=== PATIENT | male | born 1980 | race Caucasian/White ===

== ENCOUNTER 2019-12-03 03:33 | Observation (INO) | payer BC, SELFPAY ==
[2019-12-03] VITALS (10 sets, daily range): BP systolic 136–171; BP diastolic 85–106; PULSE 84–128; RESP 13–20; TEMP 36.3–36.8; O2SAT 97–100; BMI 23.9
--- NOTE | ~2019-12-03 | US_ITS ---
EXAMINATION: US right upper quadrant DATE: 12/04/2019 09:15 INDICATION: Elevated liver function tests TECHNIQUE: Multiple grayscale and Doppler ultrasound images of the abdomen were obtained. COMPARISON: None FINDINGS: Pancreas is normal. Visualized proximal to mid inferior vena cava is normal. Liver has normal echogen icity and contour, with a smooth surface. No liver lesion identified. No intrahepatic biliary duct di lation suspected. Portal venous flow was seen in the hepatopetal, normal direction and has normal Dop pler waveform. The gallbladder is normal in appearance. There is no cholelithiasis. The common bile duct measures 5 mm, which is normal. Sonographic Cabrera sign was reported as negative by the sonograp her.Visualized portion of the right kidney demonstrates normal contour and echogenicity with no hydro nephrosis. IMPRESSION: 1. Normal right upper quadrant ultrasound. Reviewed, dictated and finalized at location A.
--- NOTE | 2019-12-03 03:51 | ED.ALCOHOL ---
HPI - Alcohol General Chief Complaint: Alcohol Stated Complaint: coming off of a harden Time Seen by Provider: 12/03/19 03:43 History of Present Illness HPI narrative: 39 yo male with h/o alcohol abuse presents for alcohol withdrawal. He reports that he has been on a 3 week harden. Last drink was yesterday. He now has a tremor, nausea, chest pain. He has no other medical problems and takes no medications. Related Data Home Medications Medication Instructions Recorded Confirmed No Home Medications 12/03/19 12/03/19 Allergies Allergy/AdvReac Type Severity Reaction Status Date / Time No Known Allergies Allergy Verified 12/03/19 03:48 Review of Systems Review of Systems: All systems reviewed & are unremarkable except as noted in HPI and below Constitutional: Constitutional: Denies fever(s) Eyes: Eyes: Reports no additional eye complaints ENT: Reports system reviewed and no additional complaints, except as documented Cardiovascular: Cardiovascular: Reports chest pain Respiratory: Respiratory: Reports no additional respiratory complaints Gastrointestinal: Gastrointestinal: Reports nausea and Reports vomiting Neurologic: Denies confusion [facility] Past Medical History Medical History (Updated 12/03/19 @ 05:41 by Reuben Luis MD) Alcohol abuse Alcohol withdrawal Social History Social History (Updated 12/03/19 @ 03:57 by Reuben Luis MD) Alcohol intake: current Substance use: never Exam Const: General: alert Orientation/consciousness: patient oriented x3 HENMT: Mouth: Yes dry mucous membranes Eyes: Pupils: Equal, round and reactive pupils present Resp: Effort & Inspection: normal respiratory effort Auscultation: clear to auscultation bilaterally GI: GI Palp: Yes Soft to palpation and No Tenderness to palpation present (GI) Skin: General skin exam: normal color Neuro: General: patient oriented x3 and moves all extremities Motor exam (neuro): Tremors during motor activity present Extrem: General: normal to inspection Course Vital Signs Vital signs: Vital Signs Temperature 36.3 C L 12/03/19 03:38 Pulse Rate 128 H 12/03/19 03:38 Respiratory Rate 15 12/03/19 03:38 Blood Pressure 171/106 H 12/03/19 03:38 Pulse Oximetry 98 12/03/19 03:38 Temperature 36.7 C 12/03/19 05:38 Pulse Rate 98 12/03/19 05:38 Respiratory Rate 13 12/03/19 05:38 Blood Pressure 136/95 H 12/03/19 05:38 Pulse Oximetry 97 12/03/19 05:38 MDM - Alcohol MDM Narrative Medical decision making narrative: Alcohol withdrawal, dehydration Differential Diagnosis Differential diagnosis: Likely hypomagnesemia, alcohol ketoacidosis and alcohol withdrawal syndrome Medical Records Attestation: I reviewed the patient's medical records. Lab Data Attestation: I reviewed the patient's lab results. Result diagrams: 12/03/19 03:55 12/03/19 03:55 Labs: Lab Results 12/03/19 12/03/19 12/03/19 Range/Units 03:55 03:55 03:55 WBC 5.0 (4.5-10.0) K/mm3 RBC 4.89 (4.6-6.20) M/mm3 Hgb 15.1 (14.0-18.0) g/dL Hct 43.5 (42.0-52.0) % MCV 89.0 (80-100) fl MCH 30.9 (26-34) pg MCHC 34.7 (32-36) g/dl RDW 13.2 (11.5-14.5) % Plt Count 145 L (150-375) k/mm3 MPV 10.3 (7.4-10.4) fl Immature Gran % (Auto) 0.2 (0-0.5) % Neut % (Auto) 47.4 (45.5-73.1) % Lymph % (Auto) 39.8 (18.3-44.2) % [place] % (Auto) 11.4 H (2.6-8.5) % Eos % (Auto) 0.0 (0-4.4) % Baso % (Auto) 1.2 (0.2-1.2) % Lymph # (Auto) 1.99 (0.9-3.2) K/mm3 [place] # (Auto) 0.6 (0.1-0.6) K/mm3 Eos # (Auto) 0.0 (0-0.3) K/mm3 Baso # (Auto) 0.1 (0.0-0.1) K/mm3 Abs Immat Gran (auto) 0.01 (0.00-0.031) K/mm3 Absolute Neuts (auto) 2.4 (1.3-6.7) K/mm3 Absolute Nucleated RBC 0.0 (0.0-0.012) K/mm3 Nucleated RBC % 0.0 (0.0-0.2) % % Immature Plt Fraction 5.0 (0.9-11.2) % Sodium 138 (137-145) mmol/L Pot
[2019-12-03] MEDS: SODIUM CHLORIDE 0.9% IV 2,000 ML 999 ML IV CONT (03:57)
[2019-12-03] MEDS: THIAMINE HCL 200 MG/2 ML VIAL 100 MG IV PUSH (03:58)
[2019-12-03 04:04] LABS: Basophils Absolute Auto 0.1 K/mm3 (0.0-0.1); Basophils Percent Auto 1.2 % (0.2-1.2); Hematocrit 43.5 % (42.0-52.0); Hemoglobin 15.1 g/dL (14.0-18.0); Immature Granulocyte Absolute 0.01 K/mm3 (0.00-0.031); Immature Granulocyte Percent A 0.2 % (0-0.5); Lymphocytes Absolute Auto 1.99 K/mm3 (0.9-3.2); Lymphocytes Percent Auto 39.8 % (18.3-44.2); Mean Corpuscular HGB Conc 34.7 g/dl (32-36); Mean Corpuscular Hemoglobin 30.9 pg (26-34); Mean Platelet Volume 10.3 fl (7.4-10.4); Monocytes Absolute Auto 0.6 K/mm3 (0.1-0.6); Monocytes Percent Auto 11.4 % (2.6-8.5); Neutrophils Absolute Auto 2.4 K/mm3 (1.3-6.7); Neutrophils Percent Auto 47.4 % (45.5-73.1); Platelet Count Result 145 k/mm3 (150-375); Red Blood Count 4.89 M/mm3 (4.6-6.20); Red Cell Distribution Width 13.2 % (11.5-14.5)
[2019-12-03] MEDS: LORAZEPAM INJ 2 MG/ML VIAL IV PUSH ×3 (04:05→10:16)
--- NOTE | 2019-12-03 04:13 | ECG_ITS ---
Measurements Intervals [place] Rate: 121 P: 99 [place]: 172 QRS: 59 QRSD: 98 T: 56 QT: 321 QTc: 457 Interpretive Statements SINUS TACHYCARDIA BASELINE ARTIFACT- I, III, AVL, V1 ABNORMAL ECG Electronically Signed On 12-03-2019 7:10:59 CDT by Jamal Potter D.O.
[2019-12-03 04:22] LABS: Ethanol 151 mg/dL (<10)
[2019-12-03 04:24] LABS: Alanine Aminotransferase 272 U/L (4-50); Albumin Level 4.8 g/dL (3.5-5.1); Alkaline Phosphatase 85 U/L (38-126); Aspartate Amino Transferase 180 U/L (17-59); Bilirubin,Total 0.9 mg/dL (0.2-1.3); Blood Urea Nitrogen 15 mg/dL (9-20); Calcium 9.1 mg/dL (8.4-10.2); Carbon Dioxide 24 mmol/L (22-30); Chloride 98 mmol/L (98-107); Estimated CRCL calculation 133 ml/min; Estimated Glomerular Filt Rate > 60; Glucose 122 mg/dL (75-110); Potassium 3.3 mmol/L (3.4-5.0); Sodium 138 mmol/L (137-145)
[2019-12-03 05:44] LABS: Add Urine Microscopic? YES; Amorphous Sediment Urine Few; Appearance Urine Cloudy (Clear); Bacteria Urine Trace /hpf; Bilirubin Urine Negative (Negative); Blood Urine Negative (Negative); Color Urine Yellow (Yellow); Glucose Urine UA Negative (Negative); Ketones Urine Negative (Negative); Leukocyte Esterase Ur Negative LEU/UL (Negative); Mucus Urine Rare /lpf; Nitrate Urine Negative (Negative); Protein Urine 2+ mg/dL (Negative); RBC Urine 0-2 /hpf (0-2); Specific Grav Ur 1.024 (1.001-1.035); Squamous Epithelial Cell Urine Rare /hpf (Few); WBC Urine 0-3 /hpf
[2019-12-03] MEDS: LACTATED RINGERS 1,000 ML 125 ML IV CONT (05:51)
[2019-12-03] MEDS: CHLORDIAZEPOXIDE 25 MG CAPSULE 100 MG PO ×4 (05:51→23:48)
[2019-12-03 05:57] LABS: Amphetamine Screen Urine Negative (Negative); Barbiturate Screen Urine Negative (Negative); Benzodiazepines Screen Urine Negative (Negative); Cannabinoid Screen Urine Negative (Negative); Cocaine Screen Urine Negative (Negative); Methadone Screen Urine Negative (Negative); Opiate Screen Urine Negative (Negative); Phencyclidine Screen Urine Negative (Negative)
--- NOTE | 2019-12-03 06:21 | ADMGEN ---
This patient, Isaiah Hicks, was admitted to IMU Room 205-01 from ER 12/03/19 0545. Patient/family oriented to hospital policies and general routines including ID bracelet, bed and alarms, visiting hours, pain management, procedures, bathroom and other care routines, personal items, smoking policy, room service/diet, and visiting hours. Valuables list has been completed. Information on how to activate the Rapid Response Team has been discussed. Patient/Family are encouraged to report perceived risks to care and to ask questions if they do not understand what they are told or what they should do.
--- NOTE | 2019-12-03 09:09 | PM.IMHP ---
H&P: HPI History of Present Illness Chief complaint: Alcohol Withdrawal Narrative: Date of visit 12/02 829. Isaiah Hicks is a 39 year old male with history of chronic alcohol abuse who presented to the emergency room agitated tremulous concerned about his health. He has had some substernal heartburn relieved with an acid. He had an episode of emesis before admission also. No seizures no syncope. He had been drinking wine unknown quantity least a bottle a day with occasional hard liquor and beer and had abruptly stopped about 3-4 days ago. He has been drinking heavily steadily worse over the last 5 years and states that has stopped 1 other time for about a month with minor withdrawal and no seizures or DTs. In the ER it was felt he would best be admitted for observation. Review of Systems Review of Systems: Narrative: Constitutional no fever no chills but he states that appetite has been poor nose lost about 20 lb over last 6 months Eye no double vision scotoma Mouth no pharyngitis laryngitis Pulmonary no shortness of breath wheezing or cough no history of asthma GI had the emesis substernal burning relieved with antacids as but no melena hematochezia or diarrhea no dysuria hematuria Muscle skeletal no particular joint discomfort Integument no skin breakdown rashes Neuro as above no seizures or syncope Psych slightly depressed PMFSH Past Medical History Medical History (Updated 12/03/19 @ 09:24 by Jose G Enamorado MD) Alcohol abuse Alcohol withdrawal Family History Family History (Updated 12/03/19 @ 09:29 by Jose G Enamorado MD) Father Healthy male adult Mother Healthy female adult Other Unknown family medical history Social History Social History (Updated 12/03/19 @ 03:57 by Reuben Luis MD) Smoking packs per day: 1 Smoking cigarettes per day: 20.0 Years smoked: 10 Smoking pack-years: 10.00 Smoking status: Former smoker Tobacco type: cigarettes Second hand tobacco smoke exposure: Yes Smoking end date: 08/14/19 Alcohol intake: current Drinks per week: 7 Substance use: never Gender identity (if verbalized by the patient): Male Spiritual care concerns: No Meds Home Medications and Allergies Home Medications Medication Instructions Recorded Confirmed Type No Home Medications 12/03/19 12/03/19 History Allergies Allergy/AdvReac Type Severity Reaction Status Date / Time No Known Allergies Allergy Verified 12/03/19 03:48 Vital Signs Vital Signs - 24 hr 12/03/19 03:38 12/03/19 04:33 12/03/19 05:38 Temperature 36.3 C L 36.7 C Pulse Rate 128 H 98 98 Respiratory Rate 15 17 13 Blood Pressure 171/106 H 156/99 H 136/95 H Pulse Oximetry 98 98 97 12/03/19 05:58 12/03/19 06:00 12/03/19 08:00 Temperature 36.8 C 36.8 C Pulse Rate 100 103 H 93 Respiratory Rate 20 18 Blood Pressure 149/89 H 153/91 H Pulse Oximetry 98 100 Exam Narrative: Exam Narrative: Blood pressure 152/90 pulse is 92 respirations 18 per minute afebrile Pupils equal reactive light sclera anicteric Mouth normal Lungs clear Neck no adenopathy thyromegaly carotid bruits CV no murmurs slightly tacky Abdomen soft nontender no masses Extremities without edema good distal pulses Neuro alert cooperative cranial nerves 2-12 are intact no focal deficits and oriented x3 Psych affect flat appears depressed H&P: Results Labs Labs: Short CBC 12/03/19 Range/Units 03:55 WBC 5.0 (4.5-10.0) K/mm3 Hgb 15.1 (14.0-18.0) g/dL Hct 43.5 (42.0-52.0) % Plt Count 145 L (150-375) k/mm3 [facility] 12/03/19 03:55 Sodium 138 Potassium 3.3 L Chloride 98 Carbon Dioxide 24 BUN 15 Creatinine 0.80 Glucose 122 H Calcium 9.1 Liver Function 12/03/19 Range/Units 03:55 Total Bilirubin 0.9 (0.2-1.3) mg/dL AST 180 H (17-59) U/L ALT 272 H (4-50) U/L Alkaline Phosphatase 85 (38-126) U/L Albumin 4.8 (3.5-5.1) g/dL Urine 12/03/19 Range/
[2019-12-03] MEDS: THIAMINE HCL 100 MG TABLET PO (10:05)
[2019-12-03] MEDS: POTASSIUM CHLORIDE 20 MEQ TABLET 40 MEQ PO ×2 (10:05→14:11)
[2019-12-03 12:25] LABS: Albumin Level 3.7 g/dL (3.5-5.1); Blood Urea Nitrogen 11 mg/dL (9-20); Calcium 8.4 mg/dL (8.4-10.2); Carbon Dioxide 28 mmol/L (22-30); Chloride 99 mmol/L (98-107); Estimated CRCL calculation 151 ml/min; Estimated Glomerular Filt Rate > 60; Glucose 99 mg/dL (75-110); Magnesium 1.7 mg/dL (1.6-2.3); Phosphorus 2.8 mg/dL (2.5-4.5); Potassium 3.3 mmol/L (3.4-5.0); Sodium 133 mmol/L (137-145)
[2019-12-03 13:24] LABS: Hepatitis B Surface Antigen Negative (Negative)
[2019-12-03 13:30] LABS: HAV RESULT Negative (Negative); Hepatitis B Core IgM Result Negative (Negative)
[2019-12-03 13:32] LABS: Folic Acid 3.8 ng/mL (2.76->20)
[2019-12-03 13:41] LABS: Hepatitis C Virus Antibody Negative (Negative)
[2019-12-03] MEDS: SODIUM CHLORIDE 0.9% IV 1,000 ML 100 ML IV CONT (14:08)
--- NOTE | 2019-12-03 17:04 | PC.NURSE ---
Transfer received from IMU 205 to room 255.
--- NOTE | 2019-12-03 17:16 | PC.NURSE ---
This patient, Isaiah Hicks, was transferred to [facility] on 12/03/19 at 1652. Personal belongings sent with patient. Belongings list checked and signed with receiving. Report given to JANETH Olivo. Appropriate documentation sent with patient.
[2019-12-04] VITALS: BP 112/60; PULSE 72; RESP 20; TEMP 36.2; O2SAT 99
[2019-12-04] MEDS: CHLORDIAZEPOXIDE 25 MG CAPSULE 100 MG PO ×2 (05:34→11:30)
[2019-12-04 05:56] VITALS: BP 128/80; PULSE 76; RESP 20; TEMP 36.6; O2SAT 99
[2019-12-04 06:11] LABS: Hematocrit 39.7 % (42.0-52.0); Hemoglobin 13.4 g/dL (14.0-18.0); Immature Granulocyte Absolute 0.01 K/mm3 (0.00-0.031); Immature Granulocyte Percent A 0.2 % (0-0.5); Immature Platelet Fraction Pct 7.7 % (0.9-11.2); Lymphocytes Absolute Auto 0.94 K/mm3 (0.9-3.2); Lymphocytes Percent Auto 22.7 % (18.3-44.2); Mean Corpuscular HGB Conc 33.8 g/dl (32-36); Mean Corpuscular Hemoglobin 30.9 pg (26-34); Mean Corpuscular Volume 91.7 fl (80-100); Mean Platelet Volume 10.9 fl (7.4-10.4); Monocytes Absolute Auto 0.5 K/mm3 (0.1-0.6); Monocytes Percent Auto 11.6 % (2.6-8.5); Neutrophils Absolute Auto 2.6 K/mm3 (1.3-6.7); Neutrophils Percent Auto 63.5 % (45.5-73.1); Platelet Count Result 91 k/mm3 (150-375); Red Blood Count 4.33 M/mm3 (4.6-6.20); Red Cell Distribution Width 12.9 % (11.5-14.5); White Blood Count 4.1 K/mm3 (4.5-10.0)
[2019-12-04 06:21] LABS: Alanine Aminotransferase 239 U/L (4-50); Alkaline Phosphatase 73 U/L (38-126); Aspartate Amino Transferase 200 U/L (17-59); Bilirubin,Total 1.5 mg/dL (0.2-1.3); Blood Urea Nitrogen 8 mg/dL (9-20); Calcium 8.9 mg/dL (8.4-10.2); Carbon Dioxide 26 mmol/L (22-30); Chloride 99 mmol/L (98-107); Estimated CRCL calculation 151 ml/min; Estimated Glomerular Filt Rate > 60; Glucose 105 mg/dL (75-110); Phosphorus 2.7 mg/dL (2.5-4.5); Potassium 3.7 mmol/L (3.4-5.0); Sodium 132 mmol/L (137-145)
[2019-12-04] MEDS: THIAMINE HCL 100 MG TABLET PO (08:27)
[2019-12-04] MEDS: SODIUM CHLORIDE 0.9% IV 1,000 ML 100 ML IV CONT (08:28)
--- NOTE | 2019-12-05 18:11 | P.DS_ITS ---
DS: Diagnosis Admitting Diagnosis Admitting Diagnosis: Alcohol dependence with withdrawal, uncomplicated Discharge Diagnosis (1) Alcohol withdrawal: Qualifiers: Complication of substance-induced condition: uncomplicated Qualified Code(s): F10.230 - Alcohol dependence with withdrawal, uncomplicated Code(s): F10.239 - Alcohol dependence with withdrawal, unspecified Status: Acute Assessment and Plan: Appears to be minor at this time. Treated with benzo diazepam and and discharged with short course of benzo diazepam Q 12 p.r.n... alert and oriented at discharge (2) Alcohol abuse: Code(s): F10.10 - Alcohol abuse, uncomplicated Status: Acute Assessment and Plan: Offered patient resources for rehab and decline (3) Elevated LFTs: Code(s): R79.89 - Other specified abnormal findings of blood chemistry Status: Acute Assessment and Plan: Probably secondary to ETOH. Hepatitis serology negative and sonogram showed no right upper quadrant abnormality with smooth liver texture and normal gallbladder. (4) Thrombocytopenia: Code(s): D69.6 - Thrombocytopenia, unspecified Status: Acute Assessment and Plan: thrombocytopenia probably secondary to ETOH and will need follow-up with primary care (5) Hypertension: Code(s): I10 - Essential (primary) hypertension Status: Acute Assessment and Plan: Blood pressure slightly elevated could be from the tachycardia and agitation on admission and by the time of discharge pressure is 128/80 DS: Summary Hospital Course Hospital Course: 39-year-old white male alcoholic admitted with early alcohol withdrawal, elevated LFTs, and hypokalemia. Withdrawal symptoms remain mild and were managed usually with benzo diazepam . Electrolytes were replaced. LFTs slightly fell and were negative for hepatitis serology and hepatic sonogram. Platelets were still slightly decreased at discharge will follow up with primary Patient was offered resources for rehab in counseling for ease ETOH but declined Time Spent with Patient Time attestation: Total time spent providing and/or coordinating discharge se rvices: 35 minutes Exam Narrative: Exam Narrative: Condition on discharge Blood pressure 128/80 pulse is 76 saturating 96% on room air afebrile Pupils equal reactive to light sclera anicteric Lungs clear CV regular rate rhythm no murmurs Abdomen is soft nontender Extremities without edema good distal pulses Neuro alert oriented not agitated Discharge Plan Discharge Attending physician on discharge: Jose G Enamorado Discharging Clinician: Jose G Enamorado Patient Disposition: Home, Self-Care Activity: as tolerated Diet: regular Patient Instructions: Antibiotic Form, Abuse of Alcohol (DC), Alcohol Withdrawal (DC) Stand Alone Forms: General Discharge Information Follow-up/Referrals: UNKNOWN,DOCTOR [Primary Care Provider] - 2 Weeks Discharge Medications: New chlordiazepoxide HCl 25 mg Capsule 50 mg PO Q6-12H Qty: 20 RF: 0 No Action No Home Medications RF: 0 Date of admission: 12/03/19 05:15 Primary Care Provider: UNKNOWN,DOCTOR Admitting Provider: Pallavi Pinon Discharge Date/Time: 12/04/19 14:03 Attending physician on admission: Pallavi Pinon Condition: Improved Quality VTE Prophylaxis VTE prophylaxis: pharmacologic ordered
== END 2019-12-04 14:03 | disposition home or self-care (01) ==
LOC: ANHED 04:09 → ANHIMU 05:40 → ANH2MED 12-04 12:23 → ANHIMU 12-06 12:58
PROVIDERS: Admitting Provider Internal Medicine; Emergency Provider Emergency Medicine; Visit Provider Internal Medicine Cardiovascular Disease
DX: F10.230 Alcohol dependence with withdrawal, uncomplicated (principal); D69.6 Thrombocytopenia, unspecified; I10 Essential (primary) hypertension; R79.89 Other specified abnormal findings of blood chemistry
CPT/HCPCS: 36415; 76705; 80053; 80069; 80074; 80307; 81001; 82607; 82746; 83735; 84100; 85025; 85055; 93005; 96361; 96374; 96375; 96376; 99285; A9270; G0378; J2060; J3411; J7030; J7120

== ENCOUNTER 2020-02-18 16:05 | Emergency (ER) | payer SELFPAY ==
[2020-02-18 16:08] VITALS: BP 118/88; PULSE 133; RESP 19; TEMP 36.8; O2SAT 98
[2020-02-18 17:08] VITALS: BP 137/94; PULSE 134; RESP 15; O2SAT 96
[2020-02-18 17:11] VITALS: BP 137/94; PULSE 130; RESP 14; O2SAT 98
--- NOTE | 2020-02-18 17:44 | ED.ABDPAIN ---
HPI - Abdominal Pain General Chief Complaint: Abdominal Pain Stated Complaint: abd pain, alcoholism, depression Time Seen by Provider: 02/18/20 17:27 History of Present Illness HPI narrative: Patient presents with his father for abdominal pain and vomiting. He has been drinking heavily for 10 days. Today he had several beers in the afternoon. He says that his belly pain is epigastric and it is 7 out of 10. He does not have a history of pancreatitis. He does have a history of alcoholism. He was recently at [facility] and then [facility] for alcohol treatment, but left AGAINST MEDICAL ADVICE the second day. He has been to meetings twice. Surgeries include circumcision and wisdom tooth extraction. He does not take prescription medicine. He has not been sick in the last couple weeks. 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 MD elicited complaint: abdominal pain Pertinent past history: other (Alcoholism) Onset (ago): hour(s) Pain Consistency: constant Location: epigastric Severity: moderate Radiation: none Migration to: no migration Exacerbating factors: vomiting Relieving factors: nothing Context: confirms other (Alcoholic binge) Associated symptoms: nausea and vomiting Related Data Allergies Allergy/AdvReac Type Severity Reaction Status Date / Time No Known Allergies Allergy Verified 02/18/20 16:13 Review of Systems Review of Systems: Narrative: CONSTITUTIONAL: Denies fever, chills, or sweats. EYES: Denies visual changes, redness, or discharge. ENT: Denies rhinorrhea, congestion, sore throat, or otalgia. CARDIOVASCULAR: Denies chest pain, palpitations, or edema. RESPIRATORY: Denies cough or dyspnea. GASTROINTESTINAL: He has abdominal pain, nausea, vomiting, but not diarrhea. GENITOURINARY: Denies dysuria or hematuria. SKIN: Denies rash or itching. MUSCULOSKELETAL: Denies back pain, joint pain, or myalgia. NEUROLOGIC: Denies headache, numbness, or weakness. . [facility] Past Medical History Medical History (Updated 02/18/20 @ 19:35 by Priti Gray MD) Alcohol abuse Alcohol withdrawal Surgical History Surgical History (Updated 02/18/20 @ 17:47 by Priti Gray MD) History of circumcision History of wisdom tooth extraction Family History Family History (Updated 12/03/19 @ 09:29 by Jose G Enamorado MD) Father Healthy male adult Mother Healthy female adult Other Unknown family medical history Social History Social History Smoking packs per day: 1 Smoking cigarettes per day: 20.0 Years smoked: 10 Smoking pack-years: 10.00 Smoking status: Former smoker Tobacco type: cigarettes Second hand tobacco smoke exposure: Yes Smoking end date: 08/14/19 Alcohol intake: current Drinks per week: 7 Substance use: never Gender identity (if verbalized by the patient): Male Spiritual care concerns: No Exam Narrative: Exam Narrative: GENERAL: Well-appearing, well-nourished, and in no acute distress. Laying on his left side with slurred speech. HEAD: Normocephalic, atraumatic. EYES: PERRLA and EOMI. ENT: Nares clear, no rhinorrhea or epistaxis. Mucous membranes moist. NECK: Supple. CHEST: Clear to auscultation. No respiratory distress. HEART: Regular rate and rhythm. No murmur heard. Normal peripheral pulses. ABDOMEN: Soft, nontender, nondistended, normal active bowel sounds. EXTREMITIES: Normal range of motion. No edema. SKIN: Warm, dry, no rash. NEURO: No focal deficits. Alert and oriented x3. PSYCH: Normal mood and affect. Course Reevaluation(s) Reevaluation #1: The patient refused to go to CAT scan. He said his belly pain is better. His father offered to take him home. They were given a sheet with rehab potentials. The patient has been in the [facility] rehab program before. He is stable to leave with his father. Date: 02/18/20 Time: 19:36 Vit
[2020-02-18] MEDS: ONDANSETRON INJ 4 MG/2 ML VIAL IV PUSH (17:56)
[2020-02-18] MEDS: FAMOTIDINE 20 MG/2 ML VIAL IV PUSH (17:58)
[2020-02-18 18:01] LABS: Basophils Absolute Auto 0.1 K/mm3 (0.0-0.1); Basophils Percent Auto 1.2 % (0.2-1.2); Hematocrit 41.5 % (42.0-52.0); Hemoglobin 14.5 g/dL (14.0-18.0); Immature Granulocyte Absolute 0.01 K/mm3 (0.00-0.031); Immature Granulocyte Percent A 0.2 % (0-0.5); Lymphocytes Absolute Auto 1.77 K/mm3 (0.9-3.2); Lymphocytes Percent Auto 34.2 % (18.3-44.2); Mean Corpuscular HGB Conc 34.9 g/dl (32-36); Mean Corpuscular Hemoglobin 31.8 pg (26-34); Mean Platelet Volume 9.6 fl (7.4-10.4); Monocytes Absolute Auto 0.3 K/mm3 (0.1-0.6); Monocytes Percent Auto 6.6 % (2.6-8.5); Neutrophils Percent Auto 57.8 % (45.5-73.1); Platelet Count Result 224 k/mm3 (150-375); Red Blood Count 4.56 M/mm3 (4.6-6.20); Red Cell Distribution Width 12.7 % (11.5-14.5); White Blood Count 5.2 K/mm3 (4.5-10.0)
[2020-02-18 18:14] LABS: Alanine Aminotransferase 116 U/L (4-50); Albumin Level 4.8 g/dL (3.5-5.1); Alkaline Phosphatase 67 U/L (38-126); Aspartate Amino Transferase 99 U/L (17-59); Bilirubin,Total 0.5 mg/dL (0.2-1.3); Blood Urea Nitrogen 13 mg/dL (9-20); Calcium 8.9 mg/dL (8.4-10.2); Carbon Dioxide 25 mmol/L (22-30); Chloride 97 mmol/L (98-107); Estimated CRCL calculation 130 ml/min; Estimated Glomerular Filt Rate > 60; Glucose 124 mg/dL (75-110); Lipase 218 U/L (23-300); Potassium 3.7 mmol/L (3.4-5.0); Sodium 138 mmol/L (137-145)
[2020-02-18 18:44] LABS: Ethanol 344 mg/dL (<10)
[2020-02-18 19:00] VITALS: PULSE 111; RESP 14; O2SAT 97
--- NOTE | 2020-02-18 19:05 | PC.NURSE ---
REPORT GIVEN TO JANETH MARTINEZ, SHE HAS ASSUMED PT CARE.
[2020-02-18 19:13] LABS: Amphetamine Screen Urine Negative (Negative); Barbiturate Screen Urine Negative (Negative); Benzodiazepines Screen Urine Negative (Negative); Cannabinoid Screen Urine Negative (Negative); Cocaine Screen Urine Negative (Negative); Methadone Screen Urine Negative (Negative); Opiate Screen Urine Negative (Negative); Phencyclidine Screen Urine Negative (Negative)
[2020-02-18 20:38] VITALS: BP 124/86; PULSE 104; RESP 16; TEMP 37.1; O2SAT 99
== END 2020-02-18 20:41 | disposition home or self-care (01) ==
PROVIDERS: Emergency Provider Emergency Medicine
DX: F10.129 Alcohol abuse with intoxication, unspecified (principal); Y90.8 Blood alcohol level of 240 mg/100 ml or more; R10.13 Epigastric pain; R11.2 Nausea with vomiting, unspecified; Z87.891 Personal history of nicotine dependence
CPT/HCPCS: 36415; 80053; 80307; 83690; 85025; 96365; 96366; 96375; 99284; J2405; J3411; J3475; J7121

== ENCOUNTER 2020-12-02 17:02 | Emergency (ER) | payer SELFPAY ==
[2020-12-02] VITALS (33 sets, daily range): BP systolic 134–169; BP diastolic 88–100; PULSE 93–138; RESP 11–27; TEMP 36.6; O2SAT 97–100
[2020-12-02 17:29] LABS: Basophils Absolute Auto 0.1 K/mm3 (0.0-0.1); Eosinophils Percent Auto 0.5 % (0-4.4); Hematocrit 40.1 % (42.0-52.0); Hemoglobin 14.2 g/dL (14.0-18.0); Immature Granulocyte Absolute 0.01 K/mm3 (0.00-0.031); Immature Granulocyte Percent A 0.2 % (0-0.5); Immature Platelet Fraction Pct 7.5 % (0.9-11.2); Lymphocytes Absolute Auto 1.21 K/mm3 (0.9-3.2); Lymphocytes Percent Auto 20.7 % (18.3-44.2); Mean Corpuscular HGB Conc 35.4 g/dl (32-36); Mean Corpuscular Hemoglobin 31.1 pg (26-34); Mean Corpuscular Volume 87.7 fl (80-100); Mean Platelet Volume 10.3 fl (7.4-10.4); Monocytes Absolute Auto 0.5 K/mm3 (0.1-0.6); Monocytes Percent Auto 8.2 % (2.6-8.5); Neutrophils Absolute Auto 4.1 K/mm3 (1.3-6.7); Neutrophils Percent Auto 69.4 % (45.5-73.1); Platelet Count Result 118 k/mm3 (150-375); Red Blood Count 4.57 M/mm3 (4.6-6.20); White Blood Count 5.8 K/mm3 (4.5-10.0)
[2020-12-02 17:38] LABS: Alanine Aminotransferase 236 U/L (4-50); Albumin Level 4.9 g/dL (3.5-5.1); Alkaline Phosphatase 75 U/L (38-126); Anion Gap 15 mmol/L (8-16); Aspartate Amino Transferase 183 U/L (17-59); Blood Urea Nitrogen 13 mg/dL (9-20); Calcium 9.1 mg/dL (8.4-10.2); Carbon Dioxide 26 mmol/L (22-30); Chloride 91 mmol/L (98-107); Estimated CRCL calculation 125 ml/min; Estimated Glomerular Filt Rate > 60; Glucose 106 mg/dL (75-110); Lipase 185 U/L (23-300); Potassium 3.6 mmol/L (3.4-5.0); Sodium 132 mmol/L (137-145)
[2020-12-02 17:42] LABS: Ethanol < 10 mg/dL (<10)
--- NOTE | 2020-12-02 17:48 | ED.GENADULT ---
HPI - General Adult General Chief complaint: Nausea/Vomiting/Diarrhea Stated complaint: vomiting Time Seen by Provider: 12/02/20 17:17 Source: patient Mode of arrival: ambulatory Limitations: no limitations History of Present Illness HPI narrative: Patient is a 40-year-old male who presents to emergency department for evaluation of alcohol abuse patient has been drinking wine daily and has been on a harden for several weeks patient has longstanding history of alcohol abuse is currently unemployed living at home with history of anxiety depression and PTSD does not see any specialists or primary care. Patient has been to the [facility] for this in the past and signed himself out typically after a day or so according to his dad who is accompanying him. Patient has longstanding history of alcohol abuse. Patient is not drinking for 2 days and on arrival is in no distress. Patient notes he has had some emesis over the last several days off and on only a few episodes total. Patient notes some discomfort of the abdomen and nausea also notes tremors. Patient lives by himself. Related Data Allergies Allergy/AdvReac Type Severity Reaction Status Date / Time No Known Allergies Allergy Verified 02/18/20 16:13 Review of Systems Review of Systems: All systems reviewed & are unremarkable except as noted in HPI and below PMFSH Past Medical History Medical History Alcohol abuse Alcohol withdrawal Surgical History Surgical History History of circumcision History of wisdom tooth extraction Family History Family History (Updated 12/03/19 @ 09:29 by Jose G Enamorado, ) Father Healthy male adult Mother Healthy female adult Other Unknown family medical history Social History Social History Smoking packs per day: 1 Smoking cigarettes per day: 20.0 Years smoked: 10 Smoking pack-years: 10.00 Smoking status: Former smoker Tobacco type: cigarettes Second hand tobacco smoke exposure: Yes Smoking end date: 08/14/19 Alcohol intake: current Drinks per week: 7 Substance use: never Gender identity (if verbalized by the patient): Male Spiritual care concerns: No Exam Narrative: Exam Narrative: GENERAL: Well-appearing, well-nourished, and in no acute distress. HEAD: Normocephalic, atraumatic. EYES: PERRLA and EOMI. ENT: Nares clear, no rhinorrhea or epistaxis. Mucous membranes moist. NECK: Supple. No adenopathy or masses. CHEST: Clear to auscultation. No respiratory distress. No wheezes rales or rhonchi HEART: Regular rate and rhythm. No murmur heard. Normal peripheral pulses. ABDOMEN: Soft, nontender, nondistended EXTREMITIES: Normal range of motion. No edema. SKIN: Warm, dry, no rash. NEURO: No focal deficits. Alert and oriented x3. Cranial nerves II through XII grossly intact PSYCH: Normal mood and affect. Course Course Emergency Course: Patient evaluated emergency department will be discharged home with his father patient denies SI HI patient with normal mentation has been hydrated patient with elevated liver enzymes secondary [facility] will be given primary care and GI resources Vital Signs Vital signs: Vital Signs Temperature 97.8 F 12/02/20 17:03 Pulse Rate 138 H 12/02/20 17:03 Respiratory Rate 14 12/02/20 17:03 Blood Pressure 169/95 H 12/02/20 17:03 Pulse Oximetry 99 12/02/20 17:03 Temperature 97.8 F 12/02/20 17:03 Pulse Rate 98 12/02/20 19:15 Respiratory Rate 15 12/02/20 19:15 Blood Pressure 142/93 H 12/02/20 19:01 Pulse Oximetry 99 12/02/20 19:01 Medical Decision Making MDM Narrative Medical decision making narrative: Patient afebrile nontoxic-appearing no distress felt appropriate for outpatient reevaluation will be discharged home with family will follow u
[2020-12-02] MEDS: FAMOTIDINE 20 MG/2 ML VIAL IV PUSH (17:51)
[2020-12-02] MEDS: ONDANSETRON INJ 4 MG/2 ML VIAL IV PUSH (17:52)
[2020-12-02] MEDS: LORazepam INJ (*CRX) 2 MG/ML VIAL 1 MG IV PUSH ×2 (17:54→21:55)
[2020-12-02] MEDS: THIAMINE HCL INJ 100 MG, FOLIC ACID INJ 1 MG, MULTIVITAMINS-12 INJ VIAL 1 5 ML, MULTIVI... 999 MG IV CONT (18:16)
[2020-12-02 18:27] LABS: Magnesium 1.6 mg/dL (1.6-2.3)
== END 2020-12-02 22:00 | disposition home or self-care (01) ==
PROVIDERS: Emergency Medicine Emergency Medical Services; Emergency Provider Emergency Medicine
DX: F10.10 Alcohol abuse, uncomplicated (principal); Z87.891 Personal history of nicotine dependence; Z77.22 Contact with and (suspected) exposure to environmental tobacco smoke (acute) (chronic); Y90.0 Blood alcohol level of less than 20 mg/100 ml
CPT/HCPCS: 36415; 80053; 80307; 83690; 83735; 85025; 85055; 96365; 96366; 96375; 96376; 99284; J2060; J2405; J3411; J3475; J7120

== ENCOUNTER 2021-01-21 22:44 | Emergency (ER) | payer SELFPAY ==
[2021-01-21 23:04] VITALS: BP 147/98; PULSE 131; RESP 16; TEMP 37.1; O2SAT 97
[2021-01-21 23:31] VITALS: BP 130/93; PULSE 124; RESP 16; O2SAT 96
[2021-01-21 23:46] VITALS: BP 128/94; PULSE 123; RESP 19; O2SAT 97
[2021-01-22] VITALS (15 sets, daily range): BP systolic 120–130; BP diastolic 70–95; PULSE 101–122; RESP 9–21; O2SAT 95–98
--- NOTE | 2021-01-22 00:04 | ECG_ITS ---
Measurements Intervals [place] Rate: 119 P: [place]: 0 QRS: 71 QRSD: 98 T: 70 QT: 314 QTc: 442 Interpretive Statements SINUS TACHYCARDIA INCOMPLETE RIGHT BUNDLE BRANCH BLOCK ABNORMAL ECG Electronically Signed On 01-22-2021 6:30:42 CDT by Jamal Potter D.O.
[2021-01-22 00:06] LABS: Basophils Percent Auto 0.7 % (0.2-1.2); Eosinophils Percent Auto 0.2 % (0-4.4); Hematocrit 41.2 % (42.0-52.0); Hemoglobin 14.3 g/dL (14.0-18.0); Immature Granulocyte Absolute 0.01 K/mm3 (0.00-0.031); Immature Granulocyte Percent A 0.2 % (0-0.5); Lymphocytes Absolute Auto 1.97 K/mm3 (0.9-3.2); Lymphocytes Percent Auto 34.3 % (18.3-44.2); Mean Corpuscular HGB Conc 34.7 g/dl (32-36); Mean Corpuscular Hemoglobin 31.4 pg (26-34); Mean Corpuscular Volume 90.5 fl (80-100); Mean Platelet Volume 9.2 fl (7.4-10.4); Monocytes Absolute Auto 0.4 K/mm3 (0.1-0.6); Monocytes Percent Auto 6.1 % (2.6-8.5); Neutrophils Absolute Auto 3.4 K/mm3 (1.3-6.7); Neutrophils Percent Auto 58.5 % (45.5-73.1); Platelet Count Result 229 k/mm3 (150-375); Red Blood Count 4.55 M/mm3 (4.6-6.20); Red Cell Distribution Width 13.1 % (11.5-14.5); White Blood Count 5.7 K/mm3 (4.5-10.0)
[2021-01-22 00:10] LABS: INR 0.9; Prothrombin Time 12.7 Seconds (11.1-14.7)
[2021-01-22 00:13] LABS: Ethanol 264 mg/dL (<10)
[2021-01-22 00:14] LABS: Alanine Aminotransferase 123 U/L (4-50); Albumin Level 4.4 g/dL (3.5-5.1); Alkaline Phosphatase 53 U/L (38-126); Anion Gap 16 mmol/L (8-16); Aspartate Amino Transferase 111 U/L (17-59); Bilirubin,Total 0.4 mg/dL (0.2-1.3); Blood Urea Nitrogen 13 mg/dL (9-20); Calcium 8.6 mg/dL (8.4-10.2); Carbon Dioxide 24 mmol/L (22-30); Chloride 98 mmol/L (98-107); Estimated CRCL calculation 125 ml/min; Estimated Glomerular Filt Rate > 60; Glucose 178 mg/dL (75-110); Lipase 162 U/L (23-300); Potassium 3.6 mmol/L (3.4-5.0); Sodium 138 mmol/L (137-145)
[2021-01-22] MEDS: LORazepam INJ (*CRX) 2 MG/ML VIAL 1 MG IV PUSH (01:13)
[2021-01-22] MEDS: ONDANSETRON INJ 4 MG/2 ML VIAL IV PUSH (01:16)
[2021-01-22 01:32] LABS: Add Urine Microscopic? YES; Appearance Urine Clear (Clear); Bilirubin Urine Negative (Negative); Blood Urine Negative (Negative); Color Urine Yellow (Yellow); Glucose Urine UA 1+ mg/dL (Negative); Ketones Urine Trace mg/dL (Negative); Leukocyte Esterase Ur Negative LEU/UL (Negative); Mucus Urine Rare /lpf; Nitrate Urine Negative (Negative); Protein Urine 1+ mg/dL (Negative); Specific Grav Ur 1.016 (1.001-1.035); Urobilinogen Urine Negative mg/dL (<2.0); WBC Urine 0-3 /hpf
--- NOTE | 2021-01-22 01:39 | ED.ALCOHOL ---
HPI - Alcohol General Chief Complaint: Alcohol Stated Complaint: etoh detox Time Seen by Provider: 01/22/21 00:38 Source: patient and family Mode of arrival: ambulatory Limitations: no limitations History of Present Illness HPI narrative: 40-year-old with a history of alcohol abuse presented to ER with complaints of nausea and vomiting and not feeling well. As per the dad he has been drinking daily over the bottle of wine was found in his bathroom vomiting was later brought to ER. Patient upon arrival requesting for Ativan. She denies being suicidal. Dad also mentions that he was admitted to [facility] for rehab years ago and he signed himself out. Patient does not want any detox at this time. 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 Chronic alcohol use: Yes Previous visits for alcohol intoxication: Yes Recent trauma: No Associated symptoms: nausea and vomiting Treatments prior to arrival: none Related Data Allergies Allergy/AdvReac Type Severity Reaction Status Date / Time No Known Allergies Allergy Verified 01/21/21 23:28 Review of Systems Review of Systems: All systems reviewed & are unremarkable except as noted in HPI and below Constitutional: Constitutional: Reports no additional constitutional complaints Eyes: Eyes: Reports no additional eye complaints ENT: Reports system reviewed and no additional complaints, except as documented Cardiovascular: Cardiovascular: Reports no additional cardiovascular complaints Respiratory: Respiratory: Reports no additional respiratory complaints Gastrointestinal: Gastrointestinal: Reports as per HPI Musculoskeletal: Musculoskeletal: Reports no additional musculoskeletal complaints [facility] Past Medical History Medical History Alcohol abuse Alcohol withdrawal Surgical History Surgical History History of circumcision History of wisdom tooth extraction Family History Family History Father Healthy male adult Mother Healthy female adult Other Unknown family medical history Social History Social History Smoking packs per day: 1 Smoking cigarettes per day: 20.0 Years smoked: 10 Smoking pack-years: 10.00 Smoking status: Former smoker Tobacco type: cigarettes Second hand tobacco smoke exposure: Yes Smoking end date: 08/14/19 Alcohol intake: current Drinks per week: 7 Substance use: never Gender identity (if verbalized by the patient): Male Spiritual care concerns: No Exam Narrative: Exam Narrative: GENERAL: Well-appearing, well-nourished, and in no acute distress. HEAD: Normocephalic, atraumatic. EYES: PERRLA and EOMI. ENT: Nares clear, no rhinorrhea or epistaxis. Mucous membranes moist. NECK: Supple. CHEST: Clear to auscultation. No respiratory distress. HEART: Tachycardic. No murmur heard. Normal peripheral pulses. ABDOMEN: Soft, nontender, nondistended, normal active bowel sounds. EXTREMITIES: Normal range of motion. No edema. No tremor present SKIN: Warm, dry, no rash. NEURO: No focal deficits. Alert and oriented x3. PSYCH: Normal mood and affect. Course Course Emergency Course: Discussed lab work with the patient and the family. I offered admission patient declined. Father states that he does not like to stay in the hospital prefers outpatient treatment. Mother states he will watch him and administer medication as needed. I recommend follow-up with the [place] detox program. Vital Signs Vital signs: Vital Signs Temperature 37.1 C 01/21/21 23:04 Pulse Rate 131 H 01/21/21 23:04 Respiratory Rate 16 01/21/21 23:04 Blood Pressure 147/98 H 01/21/21 23:04 Pulse Oximetry 97 01/21/21 23:04 Temperature 37.1 C 01/21/21 23:04 Pulse Rate 119 H 01/22/21 00:31 Respiratory Rate 13 01/22
[2021-01-22] MEDS: THIAMINE HCL INJ 100 MG, FOLIC ACID INJ 1 MG, MULTIVITAMINS-12 INJ VIAL 1 5 ML, MULTIVI... IV CONT (01:45)
[2021-01-22 01:52] LABS: Amphetamine Screen Urine Negative (Negative); Barbiturate Screen Urine Negative (Negative); Benzodiazepines Screen Urine Negative (Negative); Cannabinoid Screen Urine Negative (Negative); Cocaine Screen Urine Negative (Negative); Methadone Screen Urine Negative (Negative); Opiate Screen Urine Negative (Negative); Phencyclidine Screen Urine Negative (Negative)
--- NOTE | 2021-01-22 03:55 | PC.NURSE ---
verbal read back order to only give 400 ml of banana bag.
== END 2021-01-22 03:55 | disposition home or self-care (01) ==
PROVIDERS: General Practice; Emergency Provider Family Medicine
DX: F10.10 Alcohol abuse, uncomplicated (principal); Y90.8 Blood alcohol level of 240 mg/100 ml or more; Z87.891 Personal history of nicotine dependence; R00.0 Tachycardia, unspecified; I45.10 Unspecified right bundle-branch block
CPT/HCPCS: 36415; 80053; 80307; 81001; 83690; 83735; 85025; 85610; 85730; 93005; 96365; 96366; 96375; 99284; J2060; J2405; J3411; J3475; J7121

== ENCOUNTER 2021-05-19 07:59 | Emergency (ER) | payer MEDICAID, SELFPAY ==
[2021-05-19 08:03] VITALS: BP 156/95; PULSE 104; RESP 18; TEMP 36.7; O2SAT 99
[2021-05-19 08:36] VITALS: BP 137/93; PULSE 95; RESP 18; O2SAT 96
--- NOTE | 2021-05-19 08:46 | ED.ALCOHOL ---
HPI - Alcohol General Chief Complaint: Alcohol Stated Complaint: ETOH withdrawl Time Seen by Provider: 05/19/21 08:03 Source: patient, RN notes reviewed and old records reviewed Mode of arrival: ambulatory Limitations: no limitations History of Present Illness HPI narrative: This is a 40 year old male with history of alcohol abuse who presents for evaluation of alcohol withdrawal. Patient reports he has been binge drinking for 12 days and his last drink of alcohol was yesterday at 2 pm. His parents took him to [facility] yesterday and he was given IVF and antiemetic. He came to ER today because is having heart palpitations, shakiness, nausea and dizziness that concern him for alcohol withdrawal. He denies hallucinations, vomiting, diarrhea or bloody stools. He is complaining of epigastric abdominal pain. Related Data Allergies Allergy/AdvReac Type Severity Reaction Status Date / Time No Known Allergies Allergy Verified 01/21/21 23:28 Review of Systems Review of Systems: All systems reviewed & are unremarkable except as noted in HPI and below PMFSH Past Medical History Medical History Alcohol abuse Alcohol withdrawal Surgical History Surgical History History of circumcision History of wisdom tooth extraction Family History Family History Father Healthy male adult Mother Healthy female adult Other Unknown family medical history Social History Social History Smoking packs per day: 1 Smoking cigarettes per day: 20.0 Years smoked: 10 Smoking pack-years: 10.00 Smoking status: Former smoker Tobacco type: cigarettes Second hand tobacco smoke exposure: Yes Smoking end date: 08/14/19 Alcohol intake: current Drinks per week: 7 Substance use: never Gender identity (if verbalized by the patient): Male Spiritual care concerns: No Exam Const: General: no acute distress and alert Orientation/consciousness: patient oriented x3 HENMT: Head: normocephalic and atraumatic Face and sinus: normal facial exam, sinuses nontender and face symmetric Mouth: Yes Normal oral and palatal mucosa present, Yes lip normal, Yes oropharynx normal and Yes moist mucous membranes Eyes: Conjunctivae: conjunctivae normal Pupils: Equal, round and reactive pupils present EOM: EOMs intact bilaterally Chest: Chest palpation & inspection: normal inspection of the chest Resp: Effort & Inspection: normal respiratory effort and no retractions Auscultation: clear to auscultation bilaterally Cardio: Rate: regular rate Rhythm: regular rhythm Heart sounds: no murmurs GI: GI Palp: Yes Soft to palpation, Yes Tenderness to palpation present (GI) (epigastric), No Guarding due to palpation present (GI) and No Rigid due to palpation Auscultation: normal bowel sounds Skin: General skin exam: normal color Rashes: no rashes Neuro: General: patient oriented x3, moves all extremities, no focal motor deficits and CN's II-XI intact bilaterally Cranial nerves: Yes Nystagmus not present Speech: normal speech Other: mild tremors in hands Extrem: General: normal to inspection Psych: Mental Status: mental status grossly normal Affect: normal affect Course Reevaluation(s) Reevaluation #1: Patient is stable for discharge. He does not appear to be having severe withdrawal or DTs. I discussed discharge plan Date: 05/19/21 Time: 09:48 Vital Signs Vital signs: Vital Signs Temperature 98.1 F 05/19/21 08:03 Pulse Rate 104 H 05/19/21 08:03 Respiratory Rate 18 05/19/21 08:03 Blood Pressure 156/95 H 05/19/21 08:03 Pulse Oximetry 99 05/19/21 08:03 Temperature 98.1 F 05/19/21 08:03 Pulse Rate 89 05/19/21 10:22 Respiratory Rate 16 05/19/21 10:22 Blood Pressure 135/86
[2021-05-19] MEDS: PANTOPRAZOLE SODIUM IV 40 MG VIAL IV PUSH (08:49)
[2021-05-19] MEDS: chlordiazePOXIDE (*CRX) 25 MG CAPSULE PO (08:49)
[2021-05-19] MEDS: ONDANSETRON INJ 4 MG/2 ML VIAL IV PUSH (08:51)
--- NOTE | 2021-05-19 08:52 | ECG_ITS ---
Measurements Intervals [place] Rate: 89 P: 70 [place]: 137 QRS: -4 QRSD: 98 T: 59 QT: 383 QTc: 467 Interpretive Statements SINUS RHYTHM BASELINE ARTIFACT- I, II, III, AVR, AVF, V1-V6 NORMAL ECG Electronically Signed On 05-19-2021 9:58:45 CDT by Jamal Potter D.O.
[2021-05-19 09:07] LABS: Basophils Absolute Auto 0.1 K/mm3 (0.0-0.1); Basophils Percent Auto 1.5 % (0.2-1.2); Hematocrit 39.8 % (42.0-52.0); Hemoglobin 13.7 g/dL (14.0-18.0); Lymphocytes Absolute Auto 1.23 K/mm3 (0.9-3.2); Lymphocytes Percent Auto 30.8 % (18.3-44.2); Mean Corpuscular HGB Conc 34.4 g/dl (32-36); Mean Corpuscular Hemoglobin 32.1 pg (26-34); Mean Corpuscular Volume 93.2 fl (80-100); Mean Platelet Volume 9.8 fl (7.4-10.4); Monocytes Absolute Auto 0.3 K/mm3 (0.1-0.6); Monocytes Percent Auto 6.5 % (2.6-8.5); Neutrophils Absolute Auto 2.4 K/mm3 (1.3-6.7); Neutrophils Percent Auto 60.2 % (45.5-73.1); Platelet Count Result 151 k/mm3 (150-375); Red Blood Count 4.27 M/mm3 (4.6-6.20); Red Cell Distribution Width 13.2 % (11.5-14.5)
[2021-05-19 09:18] LABS: INR 0.9; Prothrombin Time 11.6 Seconds (11.1-14.7)
[2021-05-19 09:19] LABS: Alanine Aminotransferase 74 U/L (4-50); Albumin Level 4.8 g/dL (3.5-5.1); Alkaline Phosphatase 63 U/L (38-126); Anion Gap 11 mmol/L (8-16); Aspartate Amino Transferase 75 U/L (17-59); Bilirubin,Total 1.4 mg/dL (0.2-1.3); Blood Urea Nitrogen 13 mg/dL (9-20); Calcium 9.2 mg/dL (8.4-10.2); Carbon Dioxide 23 mmol/L (22-30); Chloride 100 mmol/L (98-107); Estimated CRCL calculation 142 ml/min; Estimated Glomerular Filt Rate > 60; Glucose 89 mg/dL (65-110); Lipase 135 U/L (23-300); Magnesium 1.8 mg/dL (1.6-2.3); Partial Thromboplastin Time 25.8 SECONDS (22.3-36.8); Potassium 3.4 mmol/L (3.4-5.0); Sodium 134 mmol/L (137-145)
[2021-05-19 09:33] LABS: Add Urine Microscopic? YES; Appearance Urine Clear (Clear); Bacteria Urine Trace /hpf; Bilirubin Urine Negative (Negative); Blood Urine Negative (Negative); Color Urine Yellow (Yellow); Glucose Urine UA Negative (Negative); Ketones Urine 1+ mg/dL (Negative); Leukocyte Esterase Ur Negative LEU/UL (Negative); Mucus Urine Moderate /lpf; Nitrate Urine Negative (Negative); Protein Urine 1+ mg/dL (Negative); Specific Grav Ur 1.023 (1.001-1.035); WBC Urine 0-3 /hpf
[2021-05-19 10:22] VITALS: BP 135/86; PULSE 89; RESP 16; O2SAT 97
== END 2021-05-19 10:22 | disposition home or self-care (01) ==
PROVIDERS: Emergency Provider General Practice
DX: F10.10 Alcohol abuse, uncomplicated (principal); Y90.9 Presence of alcohol in blood, level not specified; R94.5 Abnormal results of liver function studies; K70.10 Alcoholic hepatitis without ascites; F17.210 Nicotine dependence, cigarettes, uncomplicated
CPT/HCPCS: 36415; 80053; 81001; 83690; 83735; 85025; 85610; 85730; 93005; 96374; 96375; 99284; A9270; C9113; J2405

== ENCOUNTER 2021-10-20 16:21 | Emergency (ER) | payer OTHER, SELFPAY ==
[2021-10-20] VITALS (19 sets, daily range): BP systolic 124–139; BP diastolic 85–93; PULSE 111–150; RESP 10–19; TEMP 36.8; O2SAT 95–98
--- NOTE | 2021-10-20 16:52 | ECG_ITS ---
Measurements Intervals [place] Rate: 130 P: 79 [place]: 159 QRS: 39 QRSD: 90 T: 69 QT: 300 QTc: 442 Interpretive Statements SINUS TACHYCARDIA BORDERLINE ECG COMPARED TO ECG 05/19/2021 09:28:42 SINUS TACHYCARDIA NOW PRESENT Electronically Signed On 10-21-2021 13:44:13 COMPLIANCE DIRECTOR by Derrell Macias M.D.
--- NOTE | 2021-10-20 17:05 | ED.ALCOHOL ---
HPI - Alcohol General Chief Complaint: Alcohol Stated Complaint: dehydration, alcohol detox Time Seen by Provider: 10/20/21 16:51 Source: patient Mode of arrival: ambulatory Limitations: no limitations History of Present Illness HPI narrative: Patient is a 41-year-old male complaining of I want to detox from alcohol. Patient states that he has a history of alcoholism. Patient claims that last time he drank was this morning, bottle of wine. Patient states that he has Librium at home but did not take any. According to his father he had approximately 7-8 hospital visits last year for detox. Patient states that he was just at another ER less than 2 months ago with the same complaint of wanting to detox but started drinking again this past week. Patient complaining of nausea otherwise no other complaints. Patient denies any chest pain, shortness of breath, abdominal pain, vomiting, diarrhea, fever or chills. Related Data Allergies Allergy/AdvReac Type Severity Reaction Status Date / Time No Known Allergies Allergy Verified 01/21/21 23:28 Review of Systems Review of Systems: All systems reviewed & are unremarkable except as noted in HPI and below Constitutional: Constitutional: Denies body ache(s), Denies chills, Denies excessive sweating, Denies fatigue, Denies fever(s), Denies headache(s), Denies lethargy, Denies malaise, Denies weakness and Denies weight loss Eyes: Eyes: Denies blurry vision, Denies change in vision and Denies loss of vision ENT: Denies dizziness, Denies ear discharge, Denies headache(s), Denies lip swelling, Denies epistaxis, Denies nasal congestion, Denies neck pain, Denies throat swelling and Denies tongue swelling Cardiovascular: Cardiovascular: Denies chest pain, Denies chest pain at rest, Denies chest pain with activity, Denies diaphoresis, Denies rapid heart rate, Denies edema, Denies irregular heart rhythm, Denies lightheadedness, Denies palpitations, Denies dyspnea and Denies dyspnea on exertion Respiratory: Respiratory: Denies chest congestion, Denies cough, Denies hemoptysis, Denies dyspnea and Denies dyspnea on exertion Gastrointestinal: Gastrointestinal: Denies abdominal pain, Denies melena, Denies hematochezia, Denies diarrhea, Denies vomiting and Denies hematemesis Musculoskeletal: Musculoskeletal: Denies abnormal gait, Denies deformity, Denies joint swelling, Denies limited range of motion, Denies neck pain and Denies numbness Neurologic: Denies Abnormal speech present, Denies abnormal gait, Denies confusion, Denies dizziness, Denies headache(s), Denies focal weakness, Denies loss of vision, Denies numbness, Denies Other visual disturbances, Denies Sensory deficit (Neuro) and Denies weakness Psychiatric: Psychiatric: Denies confusion, Denies depression, Denies auditory hallucinations, Denies homicidal ideation and Denies suicidal ideation Endocrine: Endocrine: Denies cold intolerance, Denies excessive sweating, Denies fatigue, Denies heat intolerance and Denies palpitations Hematologic/Lymphatic: Hematologic/Lymphatic: Denies easy bleeding and Denies easy bruising Allergic/Immunologic: Allergic/Immunologic: Denies lip swelling, Denies throat swelling and Denies tongue swelling PMFSH Past Medical History Medical History Alcohol abuse Alcohol withdrawal Surgical History Surgical History History of circumcision History of wisdom tooth extraction Family History Family History Father Healthy male adult Mother Healthy female adult Other Unknown family medical history Social History Social History Smoking packs per day: 1 Smoking cigarettes per day: 20.0 Years smoked: 10 Smoking pack-years: 10.00 Smoking status: Former smoker Tobacco type: cigarettes Second
[2021-10-20 17:16] LABS: Basophils Absolute Auto 0.1 K/mm3 (0.0-0.1); Basophils Percent Auto 1.6 % (0.2-1.2); Eosinophils Percent Auto 0.2 % (0-4.4); Hematocrit 46.2 % (42.0-52.0); Hemoglobin 15.9 g/dL (14.0-18.0); Immature Granulocyte Absolute 0.01 K/mm3 (0.00-0.031); Immature Granulocyte Percent A 0.2 % (0-0.5); Lymphocytes Absolute Auto 2.28 K/mm3 (0.9-3.2); Lymphocytes Percent Auto 40.6 % (18.3-44.2); Mean Corpuscular HGB Conc 34.4 g/dl (32-36); Mean Corpuscular Hemoglobin 31.9 pg (26-34); Mean Corpuscular Volume 92.8 fl (80-100); Mean Platelet Volume 9.1 fl (7.4-10.4); Monocytes Absolute Auto 0.3 K/mm3 (0.1-0.6); Monocytes Percent Auto 5.3 % (2.6-8.5); Neutrophils Absolute Auto 2.9 K/mm3 (1.3-6.7); Neutrophils Percent Auto 52.1 % (45.5-73.1); Platelet Count Result 344 k/mm3 (150-375); Red Blood Count 4.98 M/mm3 (4.6-6.20); Red Cell Distribution Width 13.2 % (11.5-14.5); White Blood Count 5.6 K/mm3 (4.5-10.0)
[2021-10-20 17:28] LABS: Alanine Aminotransferase 84 U/L (4-50); Albumin Level 4.8 g/dL (3.5-5.1); Alkaline Phosphatase 59 U/L (38-126); Anion Gap 17 mmol/L (8-16); Aspartate Amino Transferase 71 U/L (17-59); Bilirubin,Total 0.6 mg/dL (0.2-1.3); Blood Urea Nitrogen 11 mg/dL (9-20); Calcium 8.6 mg/dL (8.4-10.2); Carbon Dioxide 26 mmol/L (22-30); Chloride 102 mmol/L (98-107); Estimated CRCL calculation 101 ml/min; Estimated Glomerular Filt Rate > 60; Glucose 131 mg/dL (65-110); Potassium 4.1 mmol/L (3.4-5.0); Sodium 145 mmol/L (137-145)
[2021-10-20] MEDS: LORazepam INJ (*CRX) 2 MG/ML VIAL 1 MG IV PUSH (17:31)
[2021-10-20 17:50] LABS: Ethanol 341 mg/dL (<10)
[2021-10-20] MEDS: THIAMINE HCL INJ 100 MG, FOLIC ACID INJ 1 MG, MULTIVITAMINS-12 INJ VIAL 1 5 ML, MULTIVI... IV CONT (18:14)
--- NOTE | 2021-10-20 19:05 | PC.NURSE ---
Per MD Cuenca, increase fluid rate to 500ml/hr. Rate increased in MAR.
== END 2021-10-20 21:33 | disposition home or self-care (01) ==
PROVIDERS: Emergency Provider Emergency Medicine
DX: F10.10 Alcohol abuse, uncomplicated (principal); Y90.8 Blood alcohol level of 240 mg/100 ml or more
CPT/HCPCS: 36415; 80053; 80307; 85025; 93005; 96365; 96366; 96375; 99284; J2060; J3411; J3475; J7042

== ENCOUNTER 2021-10-21 16:22 | Emergency (ER) | payer OTHER, SELFPAY ==
[2021-10-21 16:27] VITALS: BP 135/93; PULSE 81; RESP 14; TEMP 36.8; O2SAT 99
--- NOTE | 2021-10-21 16:40 | PC.NURSE ---
Pt. no longer wants to be seen after being triaged. Pt. advised to come back if there are any changes.
== END 2021-10-21 16:40 | disposition left against medical advice (07) ==
DX: G47.00 Insomnia, unspecified (principal)
CPT/HCPCS: 99199

== ENCOUNTER 2021-12-25 14:35 | Emergency (ER) | payer OTHER, SELFPAY ==
[2021-12-25 14:35] VITALS: BP 145/102; PULSE 138; RESP 18; TEMP 36.4; O2SAT 98
[2021-12-25] MEDS: SODIUM CHLORIDE 0.9% IV 1,000 ML 999 ML IV CONT (15:20)
[2021-12-25 15:33] LABS: Basophils Absolute Auto 0.1 K/mm3 (0.0-0.1); Basophils Percent Auto 2.2 % (0.2-1.2); Eosinophils Percent Auto 0.3 % (0-4.4); Hematocrit 47.4 % (42.0-52.0); Hemoglobin 15.8 g/dL (14.0-18.0); Immature Granulocyte Absolute 0.01 K/mm3 (0.00-0.031); Immature Granulocyte Percent A 0.2 % (0-0.5); Lymphocytes Absolute Auto 1.83 K/mm3 (0.9-3.2); Lymphocytes Percent Auto 30.7 % (18.3-44.2); Mean Corpuscular HGB Conc 33.3 g/dl (32-36); Mean Corpuscular Hemoglobin 30.8 pg (26-34); Mean Corpuscular Volume 92.4 fl (80-100); Mean Platelet Volume 8.9 fl (7.4-10.4); Monocytes Absolute Auto 0.5 K/mm3 (0.1-0.6); Monocytes Percent Auto 7.9 % (2.6-8.5); Neutrophils Absolute Auto 3.5 K/mm3 (1.3-6.7); Neutrophils Percent Auto 58.7 % (45.5-73.1); Platelet Count Result 318 k/mm3 (150-375); Red Blood Count 5.13 M/mm3 (4.6-6.20); Red Cell Distribution Width 13.1 % (11.5-14.5)
[2021-12-25 15:43] LABS: INR 0.9
[2021-12-25 15:44] LABS: Partial Thromboplastin Time 25.5 SECONDS (22.3-36.8)
[2021-12-25] MEDS: THIAMINE HCL 100 MG TABLET PO (15:46)
[2021-12-25 15:48] LABS: Alanine Aminotransferase 185 U/L (6-50); Alkaline Phosphatase 83 U/L (38-126); Anion Gap 16 mmol/L (8-16); Aspartate Amino Transferase 158 U/L (17-59); Bilirubin,Total 0.7 mg/dL (0.2-1.3); Blood Urea Nitrogen 15 mg/dL (9-20); Calcium 8.6 mg/dL (8.4-10.2); Carbon Dioxide 23 mmol/L (22-30); Chloride 103 mmol/L (98-107); Estimated CRCL calculation 128 ml/min; Estimated Glomerular Filt Rate > 60; Glucose 100 mg/dL (65-110); Lipase 122 U/L (23-300); Potassium 4.1 mmol/L (3.4-5.0); Sodium 142 mmol/L (137-145)
--- NOTE | 2021-12-25 16:29 | PC.NURSE ---
lab contacted about missing etoh level. states will look for it and receive it.
[2021-12-25 16:51] LABS: Ethanol 404 mg/dL (<10)
--- NOTE | 2021-12-25 17:16 | ED.ALCOHOL ---
HPI - Alcohol General Chief Complaint: Alcohol Stated Complaint: etoh withdrawls Time Seen by Provider: 12/25/21 14:44 History of Present Illness HPI narrative: Patient is a 41-year-old male who presents ER with his father due to concern for either alcohol intoxication or alcohol withdrawal. Apparently patient did not answer his phone over the last couple days. Today he was drinking alcohol in excess again. Patient admits that he has been drinking alcohol. Last drink this morning. Did not divulge what it was he was actually drinking. Denies SI or HI or any self-harm behavior. Reports she has been in and out of detox facilities without success. No drug use. Related Data Home Medications Medication Instructions Recorded Confirmed No Home Medications 12/25/21 Allergies Allergy/AdvReac Type Severity Reaction Status Date / Time No Known Allergies Allergy Verified 12/25/21 14:39 Review of Systems Review of Systems: All systems reviewed & are unremarkable except as noted in HPI and below Constitutional: Constitutional: Denies chills, Denies fever(s) and Denies weakness ENT: Denies nasal congestion and Denies sore throat Cardiovascular: Cardiovascular: Denies chest pain, Denies rapid heart rate and Denies radiating jaw, neck or arm pain Respiratory: Respiratory: Denies cough, Denies dyspnea and Denies wheezing Gastrointestinal: Gastrointestinal: Denies abdominal pain, Denies nausea and Denies vomiting Neurologic: Denies headache(s), Denies focal weakness and Denies numbness PMFSH Past Medical History Medical History Alcohol abuse Alcohol withdrawal Surgical History Surgical History History of circumcision History of wisdom tooth extraction Family History Family History Father Healthy male adult Mother Healthy female adult Other Unknown family medical history Social History Social History Smoking packs per day: 1 Smoking cigarettes per day: 20.0 Years smoked: 10 Smoking pack-years: 10.00 Smoking status: Former smoker Tobacco type: cigarettes Second hand tobacco smoke exposure: Yes Smoking end date: 08/14/19 Alcohol intake: current Drinks per week: 7 Substance use: never Gender identity (if verbalized by the patient): Male Spiritual care concerns: No Exam Narrative: GENERAL: Intoxicated-appearing, well-nourished, and in no acute distress. HEAD: Normocephalic, atraumatic. EYES: PERRL and EOMI. ENT: Mucous membranes moist. CHEST: Clear to auscultation. No respiratory distress. HEART: Tachycardic and regular. Normal peripheral pulses. ABDOMEN: Soft, nontender, nondistended. EXTREMITIES: Normal range of motion. No edema. NEURO: Alert and oriented x3. PSYCH: Normal mood and affect. Course Course Emergency Course: Patient alert and oriented. He is intoxicated but his father feels comfortable with taking him home. His father and mother will be staying with him at the house. Discussed there is no indication for withdrawal medication as patient is not actively withdrawing. Patient did receive some IV fluid and some oral thiamine. Vital Signs Vital signs: Vital Signs Temperature 97.5 F L 12/25/21 14:35 Pulse Rate 138 H 12/25/21 14:35 Respiratory Rate 18 12/25/21 14:35 Blood Pressure 145/102 H 12/25/21 14:35 Pulse Oximetry 98 12/25/21 14:35 Temperature 97.5 F L 12/25/21 14:35 Pulse Rate 114 H 12/25/21 18:48 Respiratory Rate 18 12/25/21 18:48 Blood Pressure 145/99 H 12/25/21 18:48 Pulse Oximetry 97 12/25/21 18:48 MDM - Alcohol Lab Data Result diagrams: 12/25/21 15:21 12/25/21 15:21 Labs: Lab Results 12/25/21 12/25/21 12/25/21 Range/Units 15:21 15:21 15:21 WBC 6.0
[2021-12-25 18:48] VITALS: BP 145/99; PULSE 114; RESP 18; O2SAT 97
== END 2021-12-25 19:37 | disposition home or self-care (01) ==
PROVIDERS: Emergency Provider Emergency Medicine
DX: F10.129 Alcohol abuse with intoxication, unspecified (principal); Z87.891 Personal history of nicotine dependence; Y90.8 Blood alcohol level of 240 mg/100 ml or more
CPT/HCPCS: 36415; 80053; 80307; 83690; 85025; 85610; 85730; 96360; 99283; A9270; J7030

== ENCOUNTER 2022-02-12 17:46 | Emergency (ER) | payer OTHER, SELFPAY ==
--- NOTE | ~2022-02-12 | CT_ITS ---
EXAMINATION: CT abdomen pelvis w con DATE: 02/12/2022 19:16 INDICATION: abd pain, alcohol abuse TECHNIQUE: Computed tomography (CT) of the abdomen and pelvis was performed with 100 mL Omnipaque-300 intravenous contrast. Automated exposure control and iterative reconstruction technique were employe d. The dose-length product was 686.48 mGy-cm. COMPARISON: None. FINDINGS: Lower thorax: Unremarkable Liver: Fatty infiltration. Biliary/Gallbladder: Gallbladder is normal. No bile duct dilation. Pancreas: No mass or duct dilation. Spleen: Normal. Adrenals:No mass. Kidneys: No mass or stone. Mild bilateral hydronephrosis with urothelial enhancement. GI tract: No small or large bowel dilation. Normal appendix. Mesentery/Peritoneum: No ascites, mass, or free air. Retroperitoneum: No mass. Pelvis: Markedly distended bladder without wall thickening. Soft Tissues: Soft tissues and body wall unremarkable. Bones: No acute osseous finding. IMPRESSION: Marked distention of an otherwise normal-appearing bladder, with mild bilateral hydronephrosis, may b e related to diuresis. Ascending infection is not excluded. Steatosis. Otherwise no acute abdominopel anthony process. Reviewed, dictated and finalized at location K. IMPRESSION: Marked distention of an otherwise normal-appearing bladder, with mild bilateral hydronephrosis, may be related to diuresis. Ascending infection is not exclude d. Steatosis. Otherwise no acute abdominopelvic process.
[2022-02-12 17:48] VITALS: BP 146/94; PULSE 130; RESP 18; TEMP 36.6; O2SAT 95
--- NOTE | 2022-02-12 17:56 | ECG_ITS ---
Measurements Intervals [place] Rate: 111 P: 71 [place]: 153 QRS: 44 QRSD: 93 T: 62 QT: 338 QTc: 461 Interpretive Statements SINUS TACHYCARDIA ABNORMAL ECG Electronically Signed On 02-12-2022 18:26:30 CDT by Jamal Potter D.O.
--- NOTE | 2022-02-12 18:13 | ED.ALCOHOL ---
HPI - Alcohol General Chief Complaint: Alcohol <Deborah Marie PA-C - Last Filed: 02/12/22 22:52> Stated Complaint: anxiety ETOH <KESHA Cruz Last Filed: 02/12/22 22:52> Time Seen by Provider: 02/12/22 17:56 <KESHA Cruz Last Filed: 02/12/22 22:52> Source: patient <KESHA Cruz Last Filed: 02/12/22 22:52> Mode of arrival: ambulatory <KESHA Cruz Last Filed: 02/12/22 22:52> Limitations: no limitations <KESHA Cruz Last Filed: 02/12/22 22:52> History of Present Illness HPI narrative: This is a 41-year-old male that presents to the emergency department for alcohol abuse. Patient's father brought him in for evaluation. Reports he has been on a harden for the last week. Patient does not specify what type of alcohol or how much he has been drinking. He reports enough to kill a horse . His last drink was this morning. Reports abdominal pain, nausea and vomiting. Denies fevers. <KESHA Cruz Last Filed: 02/12/22 22:52> Related Data Home Medications: Home Medications Medication Instructions Recorded Confirmed No Home Medications 12/25/21 <KESHA Cruz Last Filed: 02/12/22 22:52> Allergies/Adverse Reactions: Allergies Allergy/AdvReac Type Severity Reaction Status Date / Time No Known Allergies Allergy Verified 12/25/21 14:39 <KESHA Cruz Last Filed: 02/12/22 22:52> Review of Systems Review of Systems: CONSTITUTIONAL: Denies fever GASTROINTESTINAL: Reports abdominal pain, nausea, vomiting <KESHA Cruz Last Filed: 02/12/22 22:52> All systems reviewed & are unremarkable except as noted in HPI and below <KESHA Cruz Last Filed: 02/12/22 22:52> [facility] Past Medical History Medical History: Medical History Alcohol abuse Alcohol withdrawal <Deborah Marie PA-C - Last Filed: 02/12/22 22:52> Surgical History Surgical History: Surgical History History of circumcision History of wisdom tooth extraction <Deborah Marie PA-C - Last Filed: 02/12/22 22:52> Family History Family History: Family History Father Healthy male adult Mother Healthy female adult Other Unknown family medical history <Deborah Marie PA-C - Last Filed: 02/12/22 22:52> Social History Social History: Social History (Updated 02/12/22 @ 18:15 by Deborah Marie PA-C) Smoking packs per day: 1 Smoking cigarettes per day: 20.0 Years smoked: 10 Smoking pack-years: 10.00 Smoking status: Former smoker Tobacco type: cigarettes Second hand tobacco smoke exposure: Yes Smoking end date: 08/14/19 Alcohol intake: current Substance use: never Gender identity (if verbalized by the patient): Male Spiritual care concerns: No <Deborah Marie PA-C - Last Filed: 02/12/22 22:52> Exam Narrative: GENERAL: Well-appearing, well-nourished, and in no acute distress. HEAD: Normocephalic, atraumatic. EYES: EOMI. CHEST: Clear to auscultation. No respiratory distress. No wheezes rales or rhonchi HEART: Regular rate and rhythm. No murmur heard. Normal peripheral pulses. ABDOMEN: Soft, nontender, nondistended, normal active bowel sounds. EXTREMITIES: Normal range of motion. No edema. SKIN: Warm, dry, no rash. NEURO: No focal deficits. Alert and oriented x3. PSYCH: Normal mood and affect <Deborah Marie PA-C - Last Filed: 02/12/22 22:52> Course MACHINE STRIPPER/PA Physician Supervision I did not see this patient but the care plan was discussed with me, labs and imaging reviewed I agree with the documentation as above <Isaiah Huynh MD - Last Filed: 02/13/22 11:53> Consultations Consultation #1: Spoke with hospitalist about patient and work-up who accepts admis
[2022-02-12 18:21] LABS: Basophils Absolute Auto 0.1 K/mm3 (0.0-0.1); Basophils Percent Auto 1.3 % (0.2-1.2); Hematocrit 43.6 % (42.0-52.0); Hemoglobin 15.3 g/dL (14.0-18.0); Immature Granulocyte Absolute 0.01 K/mm3 (0.00-0.031); Immature Granulocyte Percent A 0.2 % (0-0.5); Lymphocytes Absolute Auto 2.21 K/mm3 (0.9-3.2); Lymphocytes Percent Auto 40.4 % (18.3-44.2); Mean Corpuscular HGB Conc 35.1 g/dl (32-36); Mean Corpuscular Hemoglobin 31.4 pg (26-34); Mean Corpuscular Volume 89.3 fl (80-100); Monocytes Absolute Auto 0.4 K/mm3 (0.1-0.6); Monocytes Percent Auto 6.4 % (2.6-8.5); Neutrophils Absolute Auto 2.8 K/mm3 (1.3-6.7); Neutrophils Percent Auto 51.7 % (45.5-73.1); Platelet Count Result 282 k/mm3 (150-375); Red Blood Count 4.88 M/mm3 (4.6-6.20); Red Cell Distribution Width 13.2 % (11.5-14.5); White Blood Count 5.5 K/mm3 (4.5-10.0)
[2022-02-12 18:27] LABS: Alanine Aminotransferase 148 U/L (6-50); Albumin Level 5.1 g/dL (3.5-5.1); Alkaline Phosphatase 78 U/L (38-126); Anion Gap 16 mmol/L (8-16); Aspartate Amino Transferase 131 U/L (17-59); Bilirubin,Total 0.8 mg/dL (0.2-1.3); Blood Urea Nitrogen 10 mg/dL (9-20); Calcium 8.7 mg/dL (8.4-10.2); Carbon Dioxide 25 mmol/L (22-30); Chloride 97 mmol/L (98-107); Estimated CRCL calculation 124 ml/min; Estimated Glomerular Filt Rate > 60; Glucose 108 mg/dL (65-110); Lipase 127 U/L (23-300); Magnesium 2.4 mg/dL (1.6-2.3); Sodium 138 mmol/L (137-145)
[2022-02-12 18:33] LABS: Prothrombin Time 12.3 Seconds (11.1-14.7)
[2022-02-12 18:34] LABS: Partial Thromboplastin Time 26.7 SECONDS (22.3-36.8)
[2022-02-12 18:38] LABS: Ethanol 447 mg/dL (<10)
[2022-02-12] MEDS: ONDANSETRON INJ 4 MG/2 ML VIAL IV PUSH (18:43)
[2022-02-12] MEDS: SODIUM CHLORIDE 0.9% IV 1,000 ML 999 ML IV CONT ×2 (18:43→19:57)
[2022-02-12 19:34] VITALS: BP 142/94; PULSE 108; RESP 18; O2SAT 96
[2022-02-12 19:48] LABS: Appearance Urine Clear (Clear); Bilirubin Urine Negative (Negative); Blood Urine Negative (Negative); Color Urine Yellow (Yellow); Glucose Urine UA Negative (Negative); Ketones Urine Negative (Negative); Leukocyte Esterase Ur Negative LEU/UL (Negative); Nitrate Urine Negative (Negative); Protein Urine Negative (Negative); Urobilinogen Urine 0.2 mg/dL (<2.0)
[2022-02-12 19:59] LABS: Amphetamine Screen Urine Negative (Negative); Barbiturate Screen Urine Negative (Negative); Benzodiazepines Screen Urine Negative (Negative); Cannabinoid Screen Urine Negative (Negative); Cocaine Screen Urine Negative (Negative); Methadone Screen Urine Negative (Negative); Opiate Screen Urine Negative (Negative); Phencyclidine Screen Urine Negative (Negative)
[2022-02-12 20:01] LABS: WBC Urine 0-3 /hpf
[2022-02-12 20:08] LABS: Add Urine Microscopic? NO
[2022-02-12 21:13] LABS: Reflex Lactic Acid Yes or No Add Lactic
[2022-02-12] MEDS: hydrOXYzine HCL 25 MG TABLET PO (21:59)
[2022-02-12 22:01] LABS: Lactic Acid 4.6 mmol/L (0.7-2.0)
--- NOTE | 2022-02-12 22:19 | P.HP_ITS ---
H&P: HPI History of Present Illness Date/Time: 02/12/22 22:19 [facility] Past Medical History Medical History Alcohol abuse Alcohol withdrawal Surgical History Surgical History History of circumcision History of wisdom tooth extraction Family History Family History Father Healthy male adult Mother Healthy female adult Other Unknown family medical history Social History Social History (Updated 02/12/22 @ 18:15 by Deborah Marie PA-C) Smoking packs per day: 1 Smoking cigarettes per day: 20.0 Years smoked: 10 Smoking pack-years: 10.00 Smoking status: Former smoker Tobacco type: cigarettes Second hand tobacco smoke exposure: Yes Smoking end date: 08/14/19 Alcohol intake: current Substance use: never Gender identity (if verbalized by the patient): Male Spiritual care concerns: No Meds Home Medications and Allergies Home Medications Medication Instructions Recorded Confirmed Type No Home Medications 12/25/21 History Allergies Allergy/AdvReac Type Severity Reaction Status Date / Time No Known Allergies Allergy Verified 12/25/21 14:39 Vital Signs Vital Signs - 24 hr 02/12/22 17:48 02/12/22 19:34 Temperature 97.8 F Pulse Rate 130 H 108 H Respiratory Rate 18 18 Blood Pressure 146/94 H 142/94 H Pulse Oximetry 95 96 Oxygen Delivery Room Air H&P: Results Labs Labs: Short CBC 02/12/22 Range/Units 18:09 WBC 5.5 (4.5-10.0) K/mm3 Hgb 15.3 (14.0-18.0) g/dL Hct 43.6 (42.0-52.0) % Plt Count 282 (150-375) k/mm3 BMP 02/12/22 18:09 Sodium 138 Potassium 4.0 Chloride 97 L Carbon Dioxide 25 BUN 10 D Creatinine 0.80 Glucose 108 Calcium 8.7 Liver Function 02/12/22 Range/Units 18:09 Total Bilirubin 0.8 (0.2-1.3) mg/dL AST 131 H (17-59) U/L ALT 148 H (6-50) U/L Alkaline Phosphatase 78 (38-126) U/L Albumin 5.1 (3.5-5.1) g/dL Urine 02/12/22 Range/Units 19:36 Urine Color Yellow (Yellow) Urine Appearance Clear (Clear) Urine pH 7.0 (5.0-9.0) Ur Specific [place] 1.010 (1.001-1.035) Urine Protein Negative (Negative) mg/dL Urine Glucose (UA) Negative (Negative) mg/dL
[2022-02-12] MEDS: LORazepam (*CRX) 0.5 MG TABLET PO (22:25)
[2022-02-12 22:27] VITALS: BP 153/94; PULSE 108; RESP 16; O2SAT 96
[2022-02-12 23:11] LABS: SARS-CoV-2 RNA PCR Negative
== END 2022-02-12 22:55 | disposition left against medical advice (07) ==
PROVIDERS: Physician Assistant; Emergency Provider Emergency Medicine
DX: F10.10 Alcohol abuse, uncomplicated (principal); E87.2 Acidosis; Y90.8 Blood alcohol level of 240 mg/100 ml or more; Z20.822 Contact with and (suspected) exposure to COVID-19; Z87.891 Personal history of nicotine dependence; R00.0 Tachycardia, unspecified; K76.0 Fatty (change of) liver, not elsewhere classified
CPT/HCPCS: 36415; 74177; 80053; 80307; 81003; 83605; 83690; 83735; 85025; 85610; 85730; 93005; 96361; 96374; 99284; A9270; C9803; J2405; J7030; Q9967; U0003; U0005

== ENCOUNTER 2022-02-13 15:24 | Emergency (ER) | payer OTHER, SELFPAY ==
[2022-02-13 15:32] VITALS: BP 148/93; PULSE 110; RESP 16; TEMP 36.4; O2SAT 99
--- NOTE | 2022-02-13 16:08 | ECG_ITS ---
Measurements Intervals [place] Rate: 84 P: 42 HI: 124 QRS: 29 QRSD: 96 T: 50 QT: 383 QTc: 453 Interpretive Statements SINUS RHYTHM NORMAL ECG Electronically Signed On 02-13-2022 21:05:04 CDT by Jamal Potter D.O.
--- NOTE | 2022-02-13 16:15 | ED.ALCOHOL ---
HPI - Alcohol General Chief Complaint: Alcohol Stated Complaint: ETOH WITHDRAWAL WAS HERE LAST NIGHT FOR SAME Time Seen by Provider: 02/13/22 16:00 Source: patient History of Present Illness HPI narrative: Patient presents with concern for alcohol withdrawal. Patient was seen last night with recommendation for admission patient declined and signed out AMA was released home in the custody of family. Patient reports he took some Librium last night today he was feeling worse he feels anxious shaky and is concern for alcohol withdrawal. Denies any auditory visual hallucinations he denies any prior seizures. Reports abdominal pain and chest pain but thinks is related to his anxiety Related Data Allergies Allergy/AdvReac Type Severity Reaction Status Date / Time No Known Allergies Allergy Verified 02/13/22 15:45 Review of Systems Review of Systems: CONSTITUTIONAL: Denies fever, chills, or sweats. EYES: Denies visual changes, redness, or discharge. ENT: Denies rhinorrhea, congestion, sore throat, or otalgia. CARDIOVASCULAR: Denies chest pain, palpitations, or edema. RESPIRATORY: Denies cough or dyspnea. GASTROINTESTINAL: Denies abdominal pain, nausea, vomiting, or diarrhea. GENITOURINARY: Denies dysuria or hematuria. SKIN: Denies rash or itching. MUSCULOSKELETAL: Denies back pain, joint pain, or myalgia. NEUROLOGIC: Denies headache, numbness, dizziness, or weakness. PSYCHIATRIC: Patient reports feeling anxious PMFSH Past Medical History Medical History Alcohol abuse Alcohol withdrawal Surgical History Surgical History History of circumcision History of wisdom tooth extraction Family History Family History Father Healthy male adult Mother Healthy female adult Other Unknown family medical history Social History Social History Smoking packs per day: 1 Smoking cigarettes per day: 20.0 Years smoked: 10 Smoking pack-years: 10.00 Smoking status: Former smoker Tobacco type: cigarettes Second hand tobacco smoke exposure: Yes Smoking end date: 08/14/19 Alcohol intake: current Substance use: never Gender identity (if verbalized by the patient): Male Spiritual care concerns: No Exam Narrative: GENERAL: Well-appearing, well-nourished, and in no acute distress. HEAD: Normocephalic, atraumatic. EYES: PERRLA and EOMI. ENT: Nares clear, no rhinorrhea or epistaxis. Mucous membranes moist. NECK: Supple. No masses. No JVD CHEST: Clear to auscultation. No respiratory distress. No wheezes rales or rhonchi HEART: Regular tachycardia. No murmur heard. Normal peripheral pulses. ABDOMEN: Soft, nontender, nondistended EXTREMITIES: Normal range of motion. No edema. SKIN: Warm, dry, no rash. NEURO: No focal deficits. Alert and oriented x3. PSYCH: Normal mood and affect. Course Reevaluation(s) Reevaluation #1: Patient reports feeling improved results plan reviewed with patient. Patient is comfortable outpatient plan. Date: 02/13/22 Time: 18:13 Vital Signs Vital signs: Vital Signs Temperature 36.4 C 02/13/22 15:32 Pulse Rate 110 H 02/13/22 15:32 Respiratory Rate 16 02/13/22 15:32 Blood Pressure 148/93 H 02/13/22 15:32 Pulse Oximetry 99 02/13/22 15:32 Oxygen Delivery Room Air 02/13/22 15:32 Temperature 36.4 C 02/13/22 15:32 Pulse Rate 89 02/13/22 18:30 Respiratory Rate 17 02/13/22 18:30 Blood Pressure 102/57 L 02/13/22 18:30 Pulse Oximetry 98 02/13/22 18:30 Oxygen Delivery Room Air 02/13/22 15:32 MDM - Alcohol MDM Narrative Medical decision making narrative: H&P as above, vss, pt looks clinically well, exam , labs , img , additional labs/img considered, symptomatic relief available as needed, on reevaluation pt continues t
[2022-02-13 16:28] LABS: Basophils Absolute Auto 0.1 K/mm3 (0.0-0.1); Basophils Percent Auto 1.1 % (0.2-1.2); Eosinophils Percent Auto 0.7 % (0-4.4); Hematocrit 38.9 % (42.0-52.0); Hemoglobin 13.5 g/dL (14.0-18.0); Lymphocytes Absolute Auto 0.85 K/mm3 (0.9-3.2); Mean Corpuscular HGB Conc 34.7 g/dl (32-36); Mean Corpuscular Hemoglobin 31.1 pg (26-34); Mean Corpuscular Volume 89.6 fl (80-100); Monocytes Absolute Auto 0.4 K/mm3 (0.1-0.6); Monocytes Percent Auto 8.9 % (2.6-8.5); Neutrophils Absolute Auto 3.1 K/mm3 (1.3-6.7); Neutrophils Percent Auto 70.3 % (45.5-73.1); Platelet Count Result 188 k/mm3 (150-375); Red Blood Count 4.34 M/mm3 (4.6-6.20); White Blood Count 4.5 K/mm3 (4.5-10.0)
[2022-02-13] MEDS: SODIUM CHLORIDE 0.9% IV 1,000 ML 999 ML IV CONT (16:36)
[2022-02-13] MEDS: LORazepam INJ (*CRX) 2 MG/ML VIAL 1 MG IV PUSH (16:36)
[2022-02-13 16:37] LABS: Alanine Aminotransferase 131 U/L (6-50); Albumin Level 4.4 g/dL (3.5-5.1); Alkaline Phosphatase 67 U/L (38-126); Anion Gap 8 mmol/L (8-16); Aspartate Amino Transferase 94 U/L (17-59); Bilirubin,Total 1.8 mg/dL (0.2-1.3); Blood Urea Nitrogen 11 mg/dL (9-20); Carbon Dioxide 27 mmol/L (22-30); Chloride 100 mmol/L (98-107); Estimated CRCL calculation 141 ml/min; Estimated Glomerular Filt Rate > 60; Glucose 112 mg/dL (65-110); Lipase 133 U/L (23-300); Potassium 3.7 mmol/L (3.4-5.0); Sodium 135 mmol/L (137-145)
[2022-02-13 16:38] LABS: Lactic Acid Reflex 0.9 mmol/L (0.7-2.0)
[2022-02-13 17:24] VITALS: BP 136/88; PULSE 92; RESP 16; O2SAT 98
[2022-02-13 18:19] VITALS: BP 138/86; PULSE 86; RESP 16; O2SAT 99
[2022-02-13 18:30] VITALS: BP 102/57; PULSE 89; RESP 17; O2SAT 98
== END 2022-02-13 18:30 | disposition home or self-care (01) ==
PROVIDERS: Emergency Provider Emergency Medicine
DX: F10.139 Alcohol abuse with withdrawal, unspecified (principal); F41.9 Anxiety disorder, unspecified; Z87.891 Personal history of nicotine dependence
CPT/HCPCS: 36415; 80053; 83605; 83690; 85025; 93005; 96361; 96374; 99284; J2060; J7030

== ENCOUNTER 2022-05-02 09:28 | Emergency (ER) | payer OTHER, SELFPAY ==
[2022-05-02 09:29] VITALS: BP 128/75; PULSE 114; RESP 14; TEMP 37.1; O2SAT 97
[2022-05-02 10:41] LABS: Basophils Absolute Auto 0.1 K/mm3 (0.0-0.1); Basophils Percent Auto 1.1 % (0.2-1.2); Hematocrit 42.5 % (42.0-52.0); Hemoglobin 14.8 g/dL (14.0-18.0); Immature Granulocyte Absolute 0.03 K/mm3 (0.00-0.031); Immature Granulocyte Percent A 0.4 % (0-0.5); Lymphocytes Absolute Auto 2.23 K/mm3 (0.9-3.2); Lymphocytes Percent Auto 30.8 % (18.3-44.2); Mean Corpuscular HGB Conc 34.8 g/dl (32-36); Mean Corpuscular Hemoglobin 31.1 pg (26-34); Mean Corpuscular Volume 89.3 fl (80-100); Mean Platelet Volume 9.3 fl (7.4-10.4); Monocytes Absolute Auto 0.3 K/mm3 (0.1-0.6); Monocytes Percent Auto 3.9 % (2.6-8.5); Neutrophils Absolute Auto 4.6 K/mm3 (1.3-6.7); Neutrophils Percent Auto 63.8 % (45.5-73.1); Platelet Count Result 346 k/mm3 (150-375); Red Blood Count 4.76 M/mm3 (4.6-6.20); Red Cell Distribution Width 12.8 % (11.5-14.5); White Blood Count 7.2 K/mm3 (4.5-10.0)
--- NOTE | 2022-05-02 10:42 | ED.ALCOHOL ---
HPI - Alcohol General Chief Complaint: Alcohol Stated Complaint: alchol Time Seen by Provider: 05/02/22 10:42 History of Present Illness HPI narrative: Pt initially here for alcohol detox help. Pt had been sober for 90 days and started drinking again over weekend. Pt has librium at home if needed. Pt has now decided he wants to go home and doesn't want labs. Pt says he is not withdrawing and wants to go home. Related Data Allergies Allergy/AdvReac Type Severity Reaction Status Date / Time No Known Allergies Allergy Verified 02/13/22 15:45 Review of Systems Review of Systems: All systems reviewed & are unremarkable except as noted in HPI and below PMFSH Past Medical History Medical History Alcohol abuse Alcohol withdrawal Surgical History Surgical History History of circumcision History of wisdom tooth extraction Family History Family History Father Healthy male adult Mother Healthy female adult Other Unknown family medical history Social History Social History Smoking packs per day: 1 Smoking cigarettes per day: 20.0 Years smoked: 10 Smoking pack-years: 10.00 Smoking status: Former smoker Tobacco type: cigarettes Second hand tobacco smoke exposure: Yes Smoking end date: 08/14/19 Alcohol intake: current Substance use: never Gender identity (if verbalized by the patient): Male Spiritual care concerns: No Exam Const: General: healthy appearing Nutritional Appearance: well nourished Orientation/consciousness: patient oriented x3 Limitations: no limitations HENMT: Mouth: Yes moist mucous membranes Neck: Neck: normal visual inspection Chest: Chest palpation & inspection: normal inspection of the chest Resp: Effort & Inspection: normal respiratory effort Auscultation: clear to auscultation bilaterally Cardio: Rate: regular rate Rhythm: regular rhythm GI: GI Palp: Yes Soft to palpation Auscultation: normal bowel sounds Back/Spine/Pelvis: Back: no CVA tenderness Skin: General skin exam: normal color Rashes: no rashes Wounds: no wounds Neuro: General: patient oriented x3 Cranial nerves: Yes Nystagmus not present Speech: normal speech Extrem: General: normal to inspection Psych: Mental Status: mental status grossly normal Affect: normal affect Attitude: cooperative Course Course Emergency Course: pt vitals look fine and does not look to be withdrawing now. Pt drank this morning. Pt has detox meds at home and resource numbers Vital Signs Vital signs: Vital Signs Temperature 98.7 F 05/02/22 09:29 Pulse Rate 114 H 05/02/22 09:29 Respiratory Rate 14 05/02/22 09:29 Blood Pressure 128/75 05/02/22 09:29 Pulse Oximetry 97 05/02/22 09:29 Oxygen Delivery Room Air 05/02/22 09:29 Temperature 98.7 F 05/02/22 09:29 Pulse Rate 114 H 05/02/22 09:29 Respiratory Rate 14 05/02/22 09:29 Blood Pressure 128/75 05/02/22 09:29 Pulse Oximetry 97 05/02/22 09:29 Oxygen Delivery Room Air 05/02/22 09:29 MDM - Alcohol Lab Data Result diagrams: 05/02/22 10:35 05/02/22 10:35 Labs: Lab Results 05/02/22 05/02/22 05/02/22 Range/Units 10:35 10:35 10:35 WBC 7.2 (4.5-10.0) K/mm3 RBC 4.76 (4.6-6.20) M/mm3 Hgb 14.8 (14.0-18.0) g/dL Hct 42.5 (42.0-52.0) % MCV 89.3 (80-100) fl MCH 31.1 (26-34) pg MCHC 34.8 (32-36) g/dl RDW 12.8 (11.5-14.5) % Plt Count 346 D (150-375) k/mm3 MPV 9.3 (7.4-10.4) fl Immature Gran % (Auto) 0.4 (0-0.5) % Neut % (Auto) 63.8 (45.5-73.1) % Lymph % (Auto) 30.8 (18.3-44.2) % [place] % (Auto) 3.9 (2.6-8.5) % Eos % (Auto) 0.0 (0-4.4) % Baso % (Auto) 1.1 (0.2-1.2) % Lymph # (Auto) 2
[2022-05-02 10:53] LABS: Alanine Aminotransferase 43 U/L (6-50); Albumin Level 4.8 g/dL (3.5-5.1); Alkaline Phosphatase 62 U/L (38-126); Anion Gap 23 mmol/L (8-16); Aspartate Amino Transferase 37 U/L (17-59); Bilirubin,Total 0.5 mg/dL (0.2-1.3); Blood Urea Nitrogen 16 mg/dL (9-20); Calcium 8.8 mg/dL (8.4-10.2); Carbon Dioxide 21 mmol/L (22-30); Chloride 100 mmol/L (98-107); Estimated CRCL calculation 128 ml/min; Estimated Glomerular Filt Rate > 60; Glucose 83 mg/dL (65-110); Lipase 58 U/L (23-300); Potassium 3.6 mmol/L (3.4-5.0); Sodium 144 mmol/L (137-145)
--- NOTE | 2022-05-02 10:54 | PC.NURSE ---
assumed care of patient from oralia Borden
[2022-05-02 10:55] LABS: Ethanol 244 mg/dL (<10)
== END 2022-05-02 10:55 | disposition home or self-care (01) ==
PROVIDERS: Emergency Provider Emergency Medicine
DX: F10.10 Alcohol abuse, uncomplicated (principal); Y90.8 Blood alcohol level of 240 mg/100 ml or more
CPT/HCPCS: 36415; 80053; 80307; 83690; 85025; 99283

== ENCOUNTER 2023-02-28 15:40 | Emergency (ER) | payer OTHER, MEDICAID, SELFPAY ==
[2023-02-28 15:41] VITALS: BP 138/89; PULSE 109; RESP 16; TEMP 36.4; O2SAT 97
--- NOTE | 2023-02-28 17:21 | ED.GENADULT ---
HPI - General Adult General Chief complaint: Alcohol Stated complaint: etoh detox Time Seen by Provider: 02/28/23 17:00 Source: patient Mode of arrival: ambulatory Limitations: no limitations History of Present Illness HPI narrative: This is a 42-year-old male who presents to the ED with chief complaint of alcohol withdrawal symptoms. Patient states his last drink was 4 hours ago. He reports he is feeling very anxious. He expresses distress over feeling like he will if he quits drinking alcohol. He states that he has been trying to quit over the last several months but goes through intermittent periods of sobriety and drinking. He states that this weekend he drank a lot more. He is feeling very anxious and is requesting something just to get me through. Specifically asking for Ativan. He states he does not have his Librium anymore. He is unsure of who prescribed this in the first place, he has been out for quite some time. Related Data Allergies Allergy/AdvReac Type Severity Reaction Status Date / Time No Known Allergies Allergy Verified 02/13/22 15:45 PMFSH Past Medical History Medical History Alcohol abuse Alcohol withdrawal Surgical History Surgical History History of circumcision History of wisdom tooth extraction Family History Family History Father Healthy male adult Mother Healthy female adult Other Unknown family medical history Social History Social History Smoking packs per day: 1 Smoking cigarettes per day: 20.0 Years smoked: 10 Smoking pack-years: 10.00 Smoking status: Former smoker Tobacco type: cigarettes Second hand tobacco smoke exposure: Yes Smoking end date: 08/14/19 Alcohol intake: current Substance use: never Gender identity (if verbalized by the patient): Male Spiritual care concerns: No Course Vital Signs Vital signs: Vital Signs Temperature 97.6 F 02/28/23 15:41 Pulse Rate 109 H 02/28/23 15:41 Respiratory Rate 16 02/28/23 15:41 Blood Pressure 138/89 02/28/23 15:41 Pulse Oximetry 97 02/28/23 15:41 Temperature 97.6 F 02/28/23 15:41 Pulse Rate 98 02/28/23 18:31 Respiratory Rate 17 02/28/23 18:31 Blood Pressure 105/92 H 02/28/23 18:31 Pulse Oximetry 98 02/28/23 18:31 Medical Decision Making MDM Narrative Medical decision making narrative: This is a 42-year-old male who presents to the ED with chief complaint of anxiety and alcohol abuse. Patient states that he has been going back and forth and try to quit alcohol. Vitals are normal. Exam is benign. He is not exhibiting any symptoms of withdrawal or clinical intoxication. He is requesting Ativan because he is anxious about not drinking tonight and dying. Lab work shows elevated EtOH at 237. CBC and CMP are largely unremarkable. We were able to control anxiety today with 1 dose of Ativan. I discussed that this is not a long-term solution for him. We had a long discussion regarding Librium taper and that he needs to get back into rehab. He says he has requested facilities that he knows of to do this. He is stable for discharge. Return precautions given and supportive measures discussed. Librium taper given. Patient is understanding and agreeable with plan for discharge and follow-up with PCP and alcohol rehab facility. Vital Signs Vital Signs: Vital Signs Temperature 97.6 F 02/28/23 15:41 Pulse Rate 109 H 02/28/23 15:41 Respiratory Rate 16 02/28/23 15:41 Blood Pressure 138/89 02/28/23 15:41 Pulse Oximetry 97 02/28/23 15:41 Temperature 97.6 F 02/28/23 15:41 Pulse Rate 98 02/28/23 18:31 Respiratory Rate 17 02/28/23 18:31 Blood Pressure 105/92 H 02/28/23 18:31 Pulse Oximetry 98 02/28/23 18:31
[2023-02-28] MEDS: LORazepam INJ (*CRX) 2 MG/ML VIAL 0.5 MG IV PUSH (17:31)
[2023-02-28 17:35] VITALS: BP 130/76; PULSE 97; RESP 13; O2SAT 98
[2023-02-28 17:40] LABS: Basophils Absolute Auto 0.1 K/mm3 (0.0-0.1); Basophils Percent Auto 1.3 % (0.2-1.2); Eosinophils Percent Auto 0.3 % (0-4.4); Hematocrit 44.7 % (42.0-52.0); Hemoglobin 15.2 g/dL (14.0-18.0); Immature Granulocyte Absolute 0.02 K/mm3 (0.00-0.031); Immature Granulocyte Percent A 0.3 % (0-0.5); Lymphocytes Absolute Auto 2.69 K/mm3 (0.9-3.2); Lymphocytes Percent Auto 37.8 % (18.3-44.2); Mean Corpuscular Hemoglobin 31.1 pg (26-34); Mean Corpuscular Volume 91.6 fl (80-100); Mean Platelet Volume 8.9 fl (7.4-10.4); Monocytes Absolute Auto 0.4 K/mm3 (0.1-0.6); Monocytes Percent Auto 5.5 % (2.6-8.5); Neutrophils Absolute Auto 3.9 K/mm3 (1.3-6.7); Neutrophils Percent Auto 54.8 % (45.5-73.1); Platelet Count Result 473 k/mm3 (150-375); Red Blood Count 4.88 M/mm3 (4.6-6.20); Red Cell Distribution Width 12.9 % (11.5-14.5); White Blood Count 7.1 K/mm3 (4.5-10.0)
[2023-02-28 17:48] LABS: Ethanol 237 mg/dL (<10)
[2023-02-28 17:58] LABS: Alanine Aminotransferase 42 U/L (6-50); Albumin Level 4.8 g/dL (3.5-5.1); Alkaline Phosphatase 61 U/L (38-126); Anion Gap 15 mmol/L (8-16); Aspartate Amino Transferase 39 U/L (17-59); Bilirubin,Total 0.5 mg/dL (0.2-1.3); Blood Urea Nitrogen 12 mg/dL (9-20); Calcium 8.9 mg/dL (8.4-10.2); Carbon Dioxide 26 mmol/L (22-30); Chloride 97 mmol/L (98-107); Estimated CRCL calculation 126 ml/min; Estimated Glomerular Filt Rate > 60; Glucose 139 mg/dL (65-110); Potassium 3.6 mmol/L (3.4-5.0); Sodium 138 mmol/L (137-145)
[2023-02-28 18:31] VITALS: BP 105/92; PULSE 98; RESP 17; O2SAT 98
== END 2023-02-28 18:31 | disposition home or self-care (01) ==
LOC: ANHED 17:48
PROVIDERS: Emergency Provider Physician Assistant
DX: F10.139 Alcohol abuse with withdrawal, unspecified (principal); Y90.7 Blood alcohol level of 200-239 mg/100 ml; Z87.891 Personal history of nicotine dependence
CPT/HCPCS: 36415; 80053; 80307; 85025; 99283; J2060

== ENCOUNTER 2023-03-21 13:36 | Emergency (ER) | payer OTHER, MEDICAID, SELFPAY ==
[2023-03-21 13:37] VITALS: BP 142/87; PULSE 102; RESP 18; TEMP 36.6; O2SAT 98
--- NOTE | 2023-03-21 14:10 | ED.ALCOHOL ---
HPI - Alcohol General Chief Complaint: Alcohol Stated Complaint: etoh detox Time Seen by Provider: 03/21/23 14:10 Source: patient Mode of arrival: ambulatory Limitations: no limitations History of Present Illness HPI narrative: Patient drove himself to the emergency room requesting alcohol detox. Patient have a lot of stress lately, family related, been drinking heavily over the last 5 days. Patient normally drinks once every 2 weeks, over the last 5 days been an alcohol binge. Last drink was 30 minutes prior to arrival to the emergency room. He denies any fever, chills, nausea, vomiting, abdominal pain, suicidal or homicidal ideation. Patient does not smoke or uses drugs. Related Data Allergies Allergy/AdvReac Type Severity Reaction Status Date / Time No Known Allergies Allergy Verified 03/21/23 13:55 Review of Systems Review of Systems: All systems reviewed & are unremarkable except as noted in HPI and below PMFSH Past Medical History Medical History Alcohol abuse Alcohol withdrawal Surgical History Surgical History History of circumcision History of wisdom tooth extraction Family History Family History Father Healthy male adult Mother Healthy female adult Other Unknown family medical history Social History Social History Smoking packs per day: 1 Smoking cigarettes per day: 20.0 Years smoked: 10 Smoking pack-years: 10.00 Smoking status: Former smoker Tobacco type: cigarettes Second hand tobacco smoke exposure: Yes Smoking end date: 08/14/19 Alcohol intake: current Substance use: never Gender identity (if verbalized by the patient): Male Spiritual care concerns: No Exam Narrative: General appearance: Well-developed, well-nourished, looks depressed Skin: Normal color Head: Normocephalic, nontraumatic Eyes: Clear conjunctiva ENT: Oropharynx normal, ears normal, nose normal Neck: Supple, nontender Chest and respiratory: Airway patent, no respiratory distress, no accessory muscle use Heart: Regular rate/rhythm Abdomen: Soft, nontender, no organomegaly, quiet bowel sounds Vascular: Normal peripheral pulses, normal capillary refill. Musculoskeletal: Normal range of motion, nontender back Neurologic: Alert and oriented ?3, [employer] is normal as tested, no gross motor deficit Course Reevaluation(s) Reevaluation #1: Patient eloped without workup Date: 03/21/23 Time: 15:22 Vital Signs Vital signs: Vital Signs Temperature 36.6 C 03/21/23 13:37 Pulse Rate 102 H 03/21/23 13:37 Respiratory Rate 18 03/21/23 13:37 Blood Pressure 142/87 H 03/21/23 13:37 Pulse Oximetry 98 03/21/23 13:37 Temperature 36.6 C 03/21/23 13:37 Pulse Rate 102 H 03/21/23 13:37 Respiratory Rate 18 03/21/23 13:37 Blood Pressure 142/87 H 03/21/23 13:37 Pulse Oximetry 98 03/21/23 13:37 MDM - Alcohol MDM Narrative Medical decision making narrative: Anxiety and depression my concern, superimposed by alcohol abuse. Patient eloped before blood workup. Differential Diagnosis Differential diagnosis: Likely hypomagnesemia, alcohol intoxication, alcohol ketoacidosis and other (Electrolyte imbalance, depression, anxiety) Medical Records Attestation: I reviewed the patient's medical records. Critical Care Time Critical Care Time Critical Care Time: No Discharge Plan Discharge Clinical Impression: Alcohol abuse, Depression Patient Disposition: Elopement After Seen by Prov Co
--- NOTE | 2023-03-21 14:35 | PC.NURSE ---
Pt noted to be ambulating out of ED with steady gait, stated, going home
== END 2023-03-21 14:45 | disposition left against medical advice (07) ==
PROVIDERS: Emergency Provider Emergency Medicine
DX: F10.10 Alcohol abuse, uncomplicated (principal); F32.A Depression, unspecified; Z87.891 Personal history of nicotine dependence
CPT/HCPCS: 99283

== ENCOUNTER 2023-03-26 12:13 | Emergency (ER) | payer OTHER, MEDICAID, SELFPAY ==
[2023-03-26 12:15] VITALS: BP 154/107; PULSE 92; RESP 20; TEMP 36.4; O2SAT 100
--- NOTE | 2023-03-26 14:10 | ED.ANXIETY ---
HPI - Anxiety General Chief Complaint: Anxiety Stated Complaint: anxiety Time Seen by Provider: 03/26/23 12:21 Source: patient Mode of arrival: ambulatory Limitations: no limitations History of Present Illness HPI narrative: Patient is a 42 y/o male who presents to the ED with c/o anxiety. Patient reports he has been increasingly anxious over the last several days. He has a history of alcoholism. He reports he has been drinking more frequently over the last few weeks. He went to the [facility] on Monday for detox. He was treated there appropriately and has not had a drink since Monday afternoon. He does not want to continue drinking and denies feeling like he is having withdrawal symptoms at this time. He notes he has missed days of work due to his alcoholism and he is at risk for losing his job. He states if he loses his job, he is at risk for losing his house. He is also going through a divorce and has an 8-year-old son. He feels as though he is at his wits end and needs something to help with his anxiety. He states he has not been sleeping much over the last 2 days due to his anxiety. He states that if he can make it through this week at work, he feels as though life will calm down. He does have plans to follow-up with psychiatry at the [facility]. He received an evaluation by crisis while he was there for his detox. He is denying any SI or HI. Reports mild nausea and slight headache. Related Data Allergies Allergy/AdvReac Type Severity Reaction Status Date / Time No Known Allergies Allergy Verified 03/26/23 12:31 Review of Systems Review of Systems: CONSTITUTIONAL: Denies fever, chills, or sweats. CARDIOVASCULAR: Denies chest pain. RESPIRATORY: Denies dyspnea. GASTROINTESTINAL: See HPI. NEUROLOGIC: See HPI. PSYCHIATRIC: See HPI. All systems reviewed & are unremarkable except as noted in HPI and below PMFSH Past Medical History Medical History Alcohol abuse Alcohol withdrawal Surgical History Surgical History History of circumcision History of wisdom tooth extraction Family History Family History Father Healthy male adult Mother Healthy female adult Other Unknown family medical history Social History Social History Smoking packs per day: 1 Smoking cigarettes per day: 20.0 Years smoked: 10 Smoking pack-years: 10.00 Smoking status: Former smoker Tobacco type: cigarettes Second hand tobacco smoke exposure: Yes Smoking end date: 08/14/19 Alcohol intake: current Substance use: never Gender identity (if verbalized by the patient): Male Spiritual care concerns: No Exam Narrative: GENERAL: Well appearing, well-nourished, non-toxic, in no acute distress. HEAD: Normocephalic, atraumatic. NECK: Supple. No adenopathy, no masses. RESPIRATORY: Airway patent, respirations nonlabored. Clear to auscultation bilaterally, no rales, rhonchi, wheezing. CARDIOVASCULAR: Regular rate and rhythm without murmurs, rubs, or gallops. Radial pulses 2+ and equal bilaterally. ABDOMINAL: Soft, nontender, nondistended, no hepatosplenomegaly. Normoactive BS. MUSCULOSKELETAL: Moves all extremities. Strength/ROM intact without gross deformities. SKIN: Warm, dry, normal color. No rashes. NEURO: A&O X3. Speech clear. Cranial nerves II-XII grossly intact. Steady gait. No ataxic movements. No tremors. PSYCHIATRIC: Anxious, tearful. Normal interaction. Course Vital Signs Vital signs: Vital Signs Temperature 97.6 F 03/26/23 12:15 Pulse Rate 92 03/26/23 12:15 Respiratory Rate 20 03/26/23 12:15 Blood Pressure 154/107 H 03/26/23 12:15 Pulse Oximetry 100 03/26/23 12:15 Oxygen Delivery Room Air 03/26/23 12:15 Temperature 97.6 F
[2023-03-26 15:02] VITALS: BP 147/97; PULSE 76; RESP 18; O2SAT 99
== END 2023-03-26 15:04 | disposition home or self-care (01) ==
PROVIDERS: Emergency Provider Physician Assistant
DX: F41.9 Anxiety disorder, unspecified (principal); F10.20 Alcohol dependence, uncomplicated; Z87.891 Personal history of nicotine dependence
CPT/HCPCS: 99283

== ENCOUNTER 2023-10-17 18:24 | Emergency (ER) | payer OTHER, MEDICAID, SELFPAY ==
--- NOTE | 2023-10-17 18:35 | PC.NURSE ---
pt to desk, stating he is leaving. pt advised to stay so he can be assessed and monitored. pt states he is leaving. advised to come back if symptoms get worse
== END 2023-10-17 19:30 | disposition left against medical advice (07) ==
LOC: ANHED 18:47
DX: Z53.21 Procedure and treatment not carried out due to patient leaving prior to being seen by health care provider (principal)
CPT/HCPCS: 99199

== ENCOUNTER 2024-03-19 15:08 | Emergency (ER) | payer OTHER, MEDICAID, SELFPAY ==
[2024-03-19 15:15] VITALS: BP 139/83; PULSE 119; RESP 16; TEMP 36.4; O2SAT 96
--- NOTE | 2024-03-19 15:37 | PC.NURSE ---
Patient amb to desk to inform this RN that he is choosing to go to the [facility]. Patient ambulatory with steady gait out of dept with visitor.
== END 2024-03-19 16:10 | disposition left against medical advice (07) ==
LOC: ANHED 16:04
DX: F10.20 Alcohol dependence, uncomplicated (principal)
CPT/HCPCS: 99199

== ENCOUNTER 2025-05-02 15:12 | Outpatient (CLI) | payer OTHER, SELFPAY ==
--- NOTE | ~2025-05-02 | XR_ITS ---
Examination: XR foot RT min 3V Clinical History: Low back pain, unspecified Comparison: None Technique: 4 views right foot Findings/impression: 1. No fracture or dislocation right foot. Reviewed, dictated and finalized at location R.
--- NOTE | ~2025-05-02 | XR_ITS ---
EXAMINATION: XR ankle RT min 3V, 05/02/2025 15:21 CDT HISTORY: Low back pain, unspecified COMPARISON: No comparisons available. Findings: No acute fracture or malalignment. No significant degenerative changes. Soft tissues unremarkable. Impression: No acute fracture or malalignment. Reviewed, dictated and finalized at location A. Impression: No acute fracture or malalignment.
--- NOTE | ~2025-05-02 | XR_ITS ---
XR lumbar spine 2-3V Indication: Low back pain, unspecified Comparison: None Findings: The vertebral heights are intact. No fracture or subluxation. Moderate loss of disc height L4-5 and L5-S1 Soft tissues unremarkable Impression: No acute abnormality. Reviewed, dictated and finalized at location A. Impression: No acute abnormality.
== END 2025-05-02 15:13 | disposition home or self-care (01) ==
LOC: MICIMG 15:16
PROVIDERS: PCP Chiropractor Rehabilitation; Visit Provider Chiropractor Rehabilitation
DX: M25.571 Pain in right ankle and joints of right foot (principal); M54.50 Low back pain, unspecified
CPT/HCPCS: 72100; 73610; 73630